=== PATIENT | male | born 1995 | race Caucasian/White ===

== ENCOUNTER 2017-08-16 20:43 | Emergency (ER) | payer OTHER ==
[~2017-08-16] VITALS: Ht 193 cm; Wt 87.1 kg
--- NOTE | 2017-08-16 20:46 | ED.ADGEN ---
Adult General Chief Complaint Chief Complaint ".. I get anxiety attacks.. and CP with them.. this episode been going on 3 to 4 hours constant...".. " Central...but I am sure it is my anxiety.. 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 Pt. 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 Pt. follows at [place]. Recent moved in to [facility]. Pt. report no prior cardiac or coagulopathy disorders. Pt. works out daily. Pt. normally healthy except for anxiety disorder. Review of Systems Review of Systems Constitutional: Denies fever or chills [] Eyes: Denies change in visual acuity, redness, or eye pain [] HENT: Denies nasal congestion or sore throat [] Respiratory: Denies cough or shortness of breath [] Cardiovascular: No additional information not addressed in HPI [] GI: Denies abdominal pain, nausea, vomiting, bloody stools or diarrhea [] : Denies dysuria or hematuria [ Musculoskeletal: Denies back pain or joint pain [] Integument: Denies rash or skin lesions [] Neurologic: Denies headache, focal weakness or sensory changes [] Endocrine: Denies polyuria or polydipsia [] All other systems were reviewed and found to be within normal limits, except as documented in this note. Family History Family History Noncontributory Current Medications Current Medications Current Medications Medications (Trade) Dose Ordered Sig/Silvio Start Time Stop Time Status Last Admin Dose Admin Aspirin (Mahad Aspirin) 325 mg 1X ONCE 08/16/17 22:00 08/16/17 22:01 DC 08/16/17 21:51 325 MG Aspirin (Children'S Aspirin) 81 mg STK-MED ONCE 08/16/17 21:47 08/16/17 21:48 DC Lactated Ringer's 1,000 ml @ 1,000 mls/hr 1X ONCE 08/16/17 22:15 08/16/17 23:14 DC 08/16/17 22:18 1,000 MLS/HR Lorazepam (Ativan) 2 mg 1X ONCE 08/16/17 22:00 08/16/17 22:01 DC 08/16/17 21:49 2 MG See nursing for home meds Allergies Allergies Allergies Coded Allergies Type Severity Reaction Last Updated Verified acetaminophen Allergy Unknown Hives 08/16/17 Yes No known drug allergies Physical Exam Physical Exam Constitutional: Well developed, well nourished, mild distress, non-toxic appearance. [] HENT: Normocephalic, atraumatic, bilateral external ears normal, oropharynx moist, no oral exudates, nose normal. [] Eyes: PERRLA, EOMI, conjunctiva normal, no discharge. [] Neck: Normal range of motion, no tenderness, supple, no stridor. [] Cardiovascular:Heart rate regular rhythm, no murmur [] Lungs & Thorax: Bilateral breath sounds equal apex with scattered wheezes on auscultation [] Abdomen: Bowel sounds normal, soft, no tenderness, no masses, no pulsatile masses. [] Penis as per history of present illness Skin: Warm, dry, no erythema, no rash. multiple tattoos Back: No tenderness, no CVA tenderness. [] Extremities: No tenderness, no cyanosis, no clubbing, ROM intact, no edema. [] Neurologic: Alert and oriented X 3, normal motor function, normal sensory function, no focal deficits noted. [] Psychologic: Affect anxious, judgement normal, mood normal. [] Current Patient Data Vital Signs Vital Signs Date Time Temp Pulse Resp B/P (MAP) Pulse Ox O2 Delivery O2 Flow Rate FiO2 08/16/17 21:55 65 18 123/73 (90) 98 Room Air 08/16/17 20:52 98.3 Lab Results Laboratory Tests Test 08/16/17 21:05 08/16/17 22:25 Creatine Kinase 1068 U/L (39-308) H Troponin I Quantitative < 0.017 ng/mL (0-0.055) D-Dimer (Tammi) 0.28 mg/L (0.00-0.50) EKG EKG I interpretation of EKG shows a sinus bradycardia rhythm at[] 59 bpm. There is some J-point elevation. But no findings of contralateral changes consistent with STEMI. Radiology/Procedures Radiology/Procedures My interpretation of chest x-ray shows no acute cardiopulmonary findings[] Course & Med Decision Making Course & Med Decision Making Pertinent Labs and Imaging studies reviewed. (See chart for details). Patient to take daily aspirin. Patient follow-up [place]. Patient return if any concerns. Consider out pt. stress testing. Final Impression Final Impression 1. Anxiety Disorder 2. Chest Pain Problems: Dragon Disclaimer Dragon Disclaimer This electronic medical record was generated, in whole or in part, using a voice recognition dictation system. LIBORIO DEL VALLE MD August 16, 2017 20:46
[2017-08-16] MEDS ORDERED: ASPIRIN 81 MG TAB.CHEW ONE (21:47)
[2017-08-16] MEDS ORDERED: ASPIRIN 325 MG TABLET PO ONE (22:00)
[2017-08-16] MEDS ORDERED: LORazepam 1 MG TABLET PO ONE (22:00)
[2017-08-16] MEDS ORDERED: IV RINGERS SOLUTION,LACTATED 1,000 ML IV ONE (22:15)
--- NOTE | 2017-08-16 23:18 | EKG ---
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
[2017-08-16 23:25] VITALS: BP 115/62
--- NOTE | 2017-08-17 08:15 | RAD ---
Exam: AP portable chest History: Chest pain, no prior surgery. Comparison: None. Findings: The heart and mediastinal structures are within normal limits for size. Lungs are without infiltrate. No pleural effusion or pneumothorax is identified. Impression: 1. No acute cardiopulmonary process. Electronically signed by: Chet Murray MD (08/17/2017 8:12 AM) [facility]
== END 2017-08-16 23:26 | disposition home or self-care (01) ==
LOC: ER 20:43
DX: F41.9 Anxiety disorder, unspecified (principal); Z88.6 Allergy status to analgesic agent
CPT/HCPCS: 36415; 71045; 82550; 84484; 85379; 93005; 99285; J7120

== ENCOUNTER 2017-10-17 21:54 | Emergency (ER) | payer OTHER ==
[~2017-10-17] VITALS: Ht 193 cm; Wt 88.5 kg
[2017-10-17 21:54] VITALS: BP 122/62
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
[2017-10-17] MEDS ORDERED: LORazepam 1 MG TABLET PO ONE (22:45)
== END 2017-10-17 22:30 | disposition home or self-care (01) ==
LOC: ER 21:54
DX: F41.0 Panic disorder [episodic paroxysmal anxiety] (principal); Z88.6 Allergy status to analgesic agent
CPT/HCPCS: 99284

== ENCOUNTER 2017-12-27 07:16 | Emergency (ER) | payer OTHER ==
[~2017-12-27] VITALS: Ht 193 cm; Wt 90.3 kg
--- NOTE | 2017-12-27 08:01 | PHYS DOC ---
Past History Past Medical History: Anxiety Past Surgical History: Other Alcohol Use: None Drug Use: None Adult General Chief Complaint Chief Complaint: ANXIETY/PANIC ATTACK HPI HPI Patient is a 22 year old male who presents with complaining of anxiety. Patient states he has had anxiety intermittently since June 2017 and take and Celexa. Patient states he used to have when necessary alprazolam. Patient states he started to have anxiety since this morning with palpitation, chest pain, has numbness and lightheadedness that did not get better with taking his home medication. Patient denies suicidal or homicidal ideation, hallucination, using drugs or alcohol. Review of Systems Review of Systems Constitutional: Denies fever or chills [] Eyes: Denies change in visual acuity, redness, or eye pain [] HENT: Denies nasal congestion or sore throat [] Respiratory: Denies cough or shortness of breath [] Cardiovascular: No additional information not addressed in HPI [] GI: Denies abdominal pain, nausea, vomiting, bloody stools or diarrhea [] : Denies dysuria or hematuria [] Musculoskeletal: Denies back pain or joint pain [] Integument: Denies rash or skin lesions [] Neurologic: Denies headache, focal weakness or sensory changes [] Endocrine: Denies polyuria or polydipsia [] All other systems were reviewed and found to be within normal limits, except as documented in this note. Current Medications Current Medications Current Medications Medications (Trade) Dose Ordered Sig/Silvio Start Time Stop Time Status Last Admin Dose Admin Lorazepam (Ativan) 1 mg 1X ONCE 12/27/17 08:10 12/27/17 08:11 12/27/17 07:53 1 MG Allergies Allergies Allergies Coded Allergies Type Severity Reaction Last Updated Verified acetaminophen Allergy Intermediate Hives 12/27/17 Yes Physical Exam Physical Exam Constitutional: Well developed, well nourished, no acute distress, non-toxic appearance. [] HENT: Normocephalic, atraumatic, bilateral external ears normal, oropharynx moist, no oral exudates, nose normal. [] Eyes: PERRLA, EOMI, conjunctiva normal, no discharge. [] Neck: Normal range of motion, no tenderness, supple, no stridor. [] Cardiovascular:Heart rate regular rhythm, no murmur [] Lungs & Thorax: Bilateral breath sounds clear to auscultation [] Abdomen: Bowel sounds normal, soft, no tenderness, no masses, no pulsatile masses. [] Skin: Warm, dry, no erythema, no rash. [] Back: No tenderness, no CVA tenderness. [] Extremities: No tenderness, no cyanosis, no clubbing, ROM intact, no edema. [] Neurologic: Alert and oriented X 3, normal motor function, normal sensory function, no focal deficits noted. [] Psychologic: Affect normal, judgement normal, mood normal. [] Current Patient Data Vital Signs Vital Signs Date Time Temp Pulse Resp B/P (MAP) Pulse Ox O2 Delivery O2 Flow Rate FiO2 12/27/17 07:26 98.1 86 18 96 Room Air EKG EKG [] Radiology/Procedures Radiology/Procedures [] Course & Med Decision Making Course & Med Decision Making Evaluation of patient in ER showed 22-year-old male patient with complaining of anxiety since this morning. Patient had unremarkable physical exam and denied suicidal and homicidal ideation and treated with Ativan and felt better. Patient instructed to follow up with his psychiatric. Dragon Disclaimer Dragon Disclaimer This electronic medical record was generated, in whole or in part, using a voice recognition dictation system. Departure Departure: Impression: Primary Impression: Panic attack Disposition: HOME, SELF-CARE (at 0800) Condition: IMPROVED Referrals: FLETCHER BRIDGES PA-C (PCP) Patient Instructions: Anxiety and Panic Attacks Additional Instructions: Continue home medication Follow-up with your primary care physician in 3-5 days Return to ER if not getting better AC SINGH MD Dec 27, 2017 08:01
[2017-12-27 08:10] VITALS: BP 104/75
[2017-12-27] MEDS ORDERED: LORazepam 2 MG/ML VIAL IM ONE (08:10)
== END 2017-12-27 08:10 | disposition home or self-care (01) ==
LOC: ER 07:16
DX: F41.0 Panic disorder [episodic paroxysmal anxiety] (principal); Z88.6 Allergy status to analgesic agent
CPT/HCPCS: 96372; 99284; J2060

== ENCOUNTER 2018-03-27 18:16 | Emergency (ER) | payer OTHER ==
[~2018-03-27] VITALS: Ht 193 cm; Wt 90.7 kg
--- NOTE | 2018-03-27 18:22 | ED.ADGEN ---
Past History Past Medical History: Anxiety, UTI Past Surgical History: Other Alcohol Use: None Drug Use: None Adult General Chief Complaint Chief Complaint ".. I ve been having chest pain again.. the last couple days.. I ve had this worked up before.. 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 Pain is been somewhat persistent last 2 days. Pain is worse with deep breaths and movement. Patient has noted the pain is been worse with PT consisting of bench presses, lifts and cleaning jerks. Patient has had similar episodes with negative stress test workups. Patient normally follows at [place]. No recent travel or specific ill contacts no recent overseas assignments. Patient does have a past history of anxiety episodes. Review of Systems Review of Systems Constitutional: Denies fever or chills [] Eyes: Denies change in visual acuity, redness, or eye pain [] HENT: Denies nasal congestion or sore throat [] Respiratory: Denies cough or shortness of breath [] Cardiovascular: No additional information not addressed in HPI [] GI: Denies abdominal pain, nausea, vomiting, bloody stools or diarrhea [] : Denies dysuria or hematuria [] Musculoskeletal: Denies back pain or joint pain [] Integument: Denies rash or skin lesions [] Neurologic: Denies headache, focal weakness or sensory changes [] Endocrine: Denies polyuria or polydipsia [] All other systems were reviewed and found to be within normal limits, except as documented in this note. Family History Family History Noncontributory Current Medications Current Medications Current Medications Medications (Trade) Dose Ordered Sig/Silvio Start Time Stop Time Status Last Admin Dose Admin Aspirin (Children'S Aspirin) 324 mg 1X ONCE 03/27/18 19:00 03/27/18 19:01 DC 03/27/18 18:54 324 MG Ketorolac Tromethamine (Toradol 30mg Vial) 30 mg 1X ONCE 03/27/18 19:00 03/27/18 19:01 DC 03/27/18 18:54 30 MG Lactated Ringer's 1,000 ml @ 1,000 mls/hr Q1H 03/27/18 18:24 03/27/18 19:23 DC 03/27/18 18:54 1,000 MLS/HR See nursing for home meds Allergies Allergies Allergies Coded Allergies Type Severity Reaction Last Updated Verified acetaminophen Allergy Intermediate Hives 12/27/17 Yes Physical Exam Physical Exam Constitutional: Well developed, well nourished, no acute distress, non-toxic appearance. [] HENT: Normocephalic, atraumatic, bilateral external ears normal, oropharynx moist, no oral exudates, nose normal. [] Eyes: PERRLA, EOMI, conjunctiva normal, no discharge. [] Neck: Normal range of motion, no tenderness, supple, no stridor. [] Cardiovascular:Heart rate regular rhythm, no murmur [] Lungs & Thorax: Bilateral breath sounds clear to auscultation [] Abdomen: Bowel sounds normal, soft, no tenderness, no masses, no pulsatile masses. [] Skin: Warm, dry, no erythema, no rash. [] Back: No tenderness, no CVA tenderness. [] Extremities: No tenderness, no cyanosis, no clubbing, ROM intact, no edema. [] Neurologic: Alert and oriented X 3, normal motor function, normal sensory function, no focal deficits noted. [] Psychologic: Affect normal, judgement normal, mood normal. [] Current Patient Data Vital Signs Vital Signs Date Time Temp Pulse Resp B/P (MAP) Pulse Ox O2 Delivery O2 Flow Rate FiO2 03/27/18 23:30 55 18 106/60 (75) 97 Room Air 03/27/18 18:25 98.2 Lab Results Laboratory Tests Test 03/27/18 18:30 03/27/18 18:38 03/27/18 21:46 Erythrocyte Sedimentation Rate 1 (0-15) White Blood Count 6.3 x10^3/uL (4.0-11.0) Red Blood Count 4.91 x10^6/uL (4.30-5.70) Hemoglobin 15.7 g/dL (13.0-17.5) Hematocrit 45.7 % (39.0-53.0) Mean Corpuscular Volume 93 fL (79-100) Mean Corpuscular Hemoglobin 32 pg (25-35) Mean Corpuscular Hemoglobin Concent 34 g/dL (31-37) Red Cell Distribution Width 12.8 % (11.5-14.5) Platelet Count 214 x10^3/uL (140-400) Neutrophils (%) (Auto) 59 % (31-73) Lymphocytes (%) (Auto) 31 % (24-48) Monocytes (%) (Auto) 8 % (0-9) Eosinophils (%) (Auto) 1 % (0-3) Basophils (%) (Auto) 1 % (0-3) Neutrophils # (Auto) 3.8 x10^3uL (1.8-7.7) Lymphocytes # (Auto) 2.0 x10^3/uL (1.0-4.8) Monocytes # (Auto) 0.5 x10^3/uL (0.0-1.1) Eosinophils # (Auto) 0.1 x10^3/uL (0.0-0.7) Basophils # (Auto) 0.0 x10^3/uL (0.0-0.2) Prothrombin Time 10.4 SEC (9.4-11.4) Prothrombin Time INR 1.0 (0.9-1.1) PTT 25 SEC (23-33) D-Dimer (Tammi) < 0.19 mg/L (0.00-0.50) Sodium Level 143 mmol/L (136-145) Potassium Level 3.5 mmol/L (3.5-5.1) Chloride Level 105 mmol/L (98-107) Carbon Dioxide Level 28 mmol/L (21-32) Anion Gap 10 (6-14) Blood Urea Nitrogen 12 mg/dL (8-26) Creatinine 1.0 mg/dL (0.7-1.3) Estimated GFR (Cockcroft-Gault) 95.3 Glucose Level 117 mg/dL (70-99) H Calcium Level 9.1 mg/dL (8.5-10.1) Magnesium Level 2.0 mg/dL (1.8-2.4) Total Bilirubin 0.5 mg/dL (0.2-1.0) Direct Bilirubin 0.1 mg/dL (0.0-0.2) Aspartate Amino Transferase (AST) 25 U/L (15-37) Alanine Aminotransferase (ALT) 26 U/L (16-63) Alkaline Phosphatase 61 U/L (46-116) Creatine Kinase 599 U/L (39-308) H Troponin I Quantitative < 0.017 ng/mL (0-0.055) JC-Yls-P-Type Natriuretic Peptide 15 pg/mL (0-124) Total Protein 7.2 g/dL (6.4-8.2) Albumin 4.1 g/dL (3.4-5.0) Lipase 85 U/L (73-393) Urine Collection Type Unknown Urine Color Yellow Urine Clarity Hazy Urine pH 7.0 Urine Specific [place] >=1.030 Urine Protein 30 mg/dl (NEG-TRACE) Urine Glucose (UA) Neg mg/dL (NEG) Urine Ketones (Stick) Trace mg/dL (NEG) Urine Blood Trace (NEG) Urine Nitrite Neg (NEG) Urine Bilirubin Neg (NEG) Urine Urobilinogen Dipstick 0.2 mg/dL (0.2 mg/dL) Urine Leukocyte Esterase Neg (NEG) Urine RBC 11-20 /HPF (0-2) Urine WBC 5-10 /HPF (0-4) Urine Squamous Epithelial Cells Few /LPF Urine Bacteria 0 /HPF (0-FEW) Urine Mucus Slight /LPF Urine Opiates Screen Neg (NEG) Urine Methadone Screen Neg (NEG) Urine Barbiturates Neg (NEG) Urine Phencyclidine Screen Neg (NEG) Urine Amphetamine/Methamphetamine Neg (NEG) Urine Benzodiazepines Screen Neg (NEG) Urine Cocaine Screen Neg (NEG) Urine Cannabinoids Screen Neg (NEG) Urine Ethyl Alcohol Neg (NEG) EKG EKG My interpretation EKG shows a sinus rhythm at 66 bpm with no acute morphology.[] Radiology/Procedures Radiology/Procedures I interpretation of chest x-ray shows no acute cardiopulmonary findings.[] Course & Med Decision Making Course & Med Decision Making Pertinent Labs and Imaging studies reviewed. (See chart for details) Patient to keep follow-up at [facility]. Patient take a daily baby aspirin. Patient return if any concerns. [] Final Impression Final Impression 1. Chest Pain[] 2. History of anxiety disorder 3. Hematuria 4. Mild elevation of CK 599 Dragon Disclaimer Dragon Disclaimer This electronic medical record was generated, in whole or in part, using a voice recognition dictation system. LIBORIO DEL VALLE MD Mar 27, 2018 18:22
[2018-03-27] MEDS ORDERED: IV RINGERS SOLUTION,LACTATED 1,000 ML IV SCH (18:24)
[2018-03-27 18:59] LABS: BASO % 1 % (0-3); EOS # 0.1 x10^3/uL (0.0-0.7); EOS % 1 % (0-3); HEMATOCRIT 45.7 % (39.0-53.0); HEMOGLOBIN 15.7 g/dL (13.0-17.5); LYMPH % 31 % (24-48); MEAN CORPUSCULAR HEMOGLOBIN 32 pg (25-35); MEAN CORPUSCULAR HGB CONC 34 g/dL (31-37); MEAN CORPUSCULAR VOLUME 93 fL (79-100); MONO # 0.5 x10^3/uL (0.0-1.1); MONO % 8 % (0-9); NEUT # 3.8 x10^3uL (1.8-7.7); NEUT % 59 % (31-73); PLATELET COUNT 214 x10^3/uL (140-400); RED BLOOD COUNT 4.91 x10^6/uL (4.30-5.70); RED CELL DISTRIBUTION WIDTH 12.8 % (11.5-14.5); WHITE BLOOD COUNT 6.3 x10^3/uL (4.0-11.0)
[2018-03-27] MEDS ORDERED: ASPIRIN 81 MG TAB.CHEW PO ONE (19:00)
[2018-03-27] MEDS ORDERED: KETOROLAC 30 MG/ML VIAL. IV ONE (19:00)
[2018-03-27 19:20] LABS: ALBUMIN 4.1 g/dL (3.4-5.0); CALCIUM 9.1 mg/dL (8.5-10.1); DIRECT BILIRUBIN 0.1 mg/dL (0.0-0.2); GFR 95.3; POTASSIUM 3.5 mmol/L (3.5-5.1); TOTAL BILIRUBIN 0.5 mg/dL (0.2-1.0); TOTAL PROTEIN 7.2 g/dL (6.4-8.2)
[2018-03-27 22:10] LABS: AMPHETAMINE/METHAMPHETAMINE NEG (NEG); BARBITURATES NEG (NEG); BENZODIAZEPINES NEG (NEG); CANNABINOIDS NEG (NEG); COCAINE NEG (NEG); METHADONE NEG (NEG); OPIATES NEG (NEG); PHENCYCLIDINE NEG (NEG)
[2018-03-27 22:43] LABS: BACTERIA,URINE 0 /HPF (0-FEW); BILIRUBIN,URINE NEG (NEG); CLARITY,URINE HAZY; COLOR,URINE YELLOW; GLUCOSE,URINE NEG (NEG); NITRITE,URINE NEG (NEG); SQUAMOUS EPITHELIAL CELL,UR FEW /LPF; UROBILINOGEN,URINE 0.2 mg/dL (0.2 mg/dL)
[2018-03-27 23:30] VITALS: BP 106/60
--- NOTE | 2018-03-27 23:57 | RAD ---
CHEST PA LATERAL History: Chest pain Comparison: August 16, 2017 Findings: 2 AP views and single lateral view of the chest are submitted. There is no infiltrate, pleural fluid, pneumothorax. Heart size is stable, within normal limits. Impression: 1. No acute radiographic abnormality is identified. Electronically signed by: Pascual Jimenez MD (03/27/2018 11:53 PM) [facility]
--- NOTE | 2018-03-28 23:08 | EKG ---
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
== END 2018-03-27 23:55 | disposition home or self-care (01) ==
LOC: ER 18:16
DX: R07.89 Other chest pain (principal); F41.9 Anxiety disorder, unspecified; R74.8 Abnormal levels of other serum enzymes; Z87.440 Personal history of urinary (tract) infections; Z88.6 Allergy status to analgesic agent
CPT/HCPCS: 36415; 71046; 80048; 80076; 80307; 81001; 82550; 83690; 83735; 83880; 84443; 84484; 85025; 85379; 85610; 85651; 85730; 87086; 93005; 96374; 99284; J1885; J7120

== ENCOUNTER 2018-05-28 19:48 | Emergency (ER) | payer OTHER ==
[~2018-05-28] VITALS: Ht 193 cm; Wt 89.9 kg
[2018-05-28] MEDS ORDERED: ALPRAZolam 0.25 MG TABLET PO ONE (20:15)
--- NOTE | 2018-05-28 20:15 | PHYS DOC ---
Adult General Chief Complaint Chief Complaint anxiety HPI HPI Years old male with history of anxiety and depression presented to the emergency department feeling anxious and crying stating and had an anxiety attack he took 2 Xanax at home 0.25 mg without any help Review of Systems Review of Systems Constitutional: Denies fever or chills [] Eyes: Denies change in visual acuity, redness, or eye pain [] HENT: Denies nasal congestion or sore throat [] Respiratory: Denies cough or shortness of breath [] Cardiovascular: No additional information not addressed in HPI [] GI: Denies abdominal pain, nausea, vomiting, bloody stools or diarrhea [] : Denies dysuria or hematuria [] Musculoskeletal: Denies back pain or joint pain [] Integument: Denies rash or skin lesions [] Neurologic: Denies headache, focal weakness or sensory changes [] Endocrine: Denies polyuria or polydipsia [] All other systems were reviewed and found to be within normal limits, except as documented in this note. Allergies Allergies Allergies Coded Allergies Type Severity Reaction Last Updated Verified acetaminophen Allergy Intermediate Hives 12/27/17 Yes Physical Exam Physical Exam Constitutional: Well developed, well nourished, no acute distress, non-toxic appearance. [] HENT: Normocephalic, atraumatic, bilateral external ears normal, oropharynx moist, no oral exudates, nose normal. [] Eyes: PERRLA, EOMI, conjunctiva normal, no discharge. [] Neck: Normal range of motion, no tenderness, supple, no stridor. [] Cardiovascular:Heart rate regular rhythm, no murmur [] Lungs & Thorax: Bilateral breath sounds clear to auscultation [] Abdomen: Bowel sounds normal, soft, no tenderness, no masses, no pulsatile masses. [] Skin: Warm, dry, no erythema, no rash. [] Back: No tenderness, no CVA tenderness. [] Extremities: No tenderness, no cyanosis, no clubbing, ROM intact, no edema. [] Neurologic: Alert and oriented X 3, normal motor function, normal sensory function, no focal deficits noted. [] EKG EKG [] Radiology/Procedures Radiology/Procedures [] Course & Med Decision Making Course & Med Decision Making Pertinent Labs and Imaging studies reviewed. (See chart for details) [] Final Impression Final Impression [] Problems: (1) Anxiety Dragon Disclaimer Dragon Disclaimer This electronic medical record was generated, in whole or in part, using a voice recognition dictation system. RIGOBERTO CAVANAUGH MD May 28, 2018 20:15
[2018-05-28 21:10] VITALS: BP 113/62
== END 2018-05-28 21:15 | disposition home or self-care (01) ==
LOC: ER 19:48
DX: F41.9 Anxiety disorder, unspecified (principal); F32.9 Major depressive disorder, single episode, unspecified; Z88.6 Allergy status to analgesic agent
CPT/HCPCS: 99284

== ENCOUNTER 2018-07-22 21:39 | Emergency (ER) | payer OTHER ==
[~2018-07-22] VITALS: Ht 193 cm; Wt 91.6 kg
[2018-07-22 21:49] VITALS: BP 143/75
--- NOTE | 2018-07-22 22:01 | PHYS DOC ---
Past History Past Medical History: Anxiety, UTI Past Surgical History: Other Additional Past Surgical Histo: [place] teeth Smoking: Non-smoker Alcohol Use: None Drug Use: None Adult General Chief Complaint Chief Complaint: ANXIETY/PANIC ATTACK HPI HPI 23-year-old male with past nuchal history of anxiety presents with two-hour history of symptoms which patient describes is very consistent with prior panic attacks. Patient denies any suicidal or homicidal ideation. Denies fever or chills. Denies nausea/vomiting/diarrhea. Patient reports he did start having some numbness and tingling in both feet and his hands. Patient reports he has had the same symptoms in the past. Patient reports they do resolve on their own. Patient did try using his home medications without significant improvement. Review of Systems Review of Systems Constitutional: Denies fever or chills [] Eyes: Denies change in visual acuity, redness, or eye pain [] HENT: Denies nasal congestion or sore throat [] Respiratory: Denies cough or shortness of breath [] Cardiovascular: Denies chest pain; reports palpitations GI: Denies abdominal pain, nausea, vomiting, or diarrhea [] : Denies dysuria or hematuria [] Musculoskeletal: Denies back pain or joint pain [] Integument: Denies rash or skin lesions [] Neurologic: Denies headache, focal weakness; reports numbness and tingling to bilateral hands and feet Psychiatric: Reports anxiety; denies suicidal or homicidal ideation Complete systems were reviewed and found to be within normal limits, except as documented in this note. Allergies Allergies Allergies Coded Allergies Type Severity Reaction Last Updated Verified acetaminophen Allergy Intermediate Hives 05/28/18 Yes Physical Exam Physical Exam Constitutional: Well developed, well nourished, no acute distress, anxious HENT: Normocephalic, atraumatic, oropharynx moist Eyes: Conjunctiva normal, no discharge. [] Neck: Normal range of motion, no tenderness, supple Cardiovascular: Heart rate regular rhythm, no murmur [] Lungs & Thorax: Bilateral breath sounds clear to auscultation [] Abdomen: Soft, no tenderness Skin: Warm, dry, no erythema, no rash. [] Extremities: No tenderness, ROM intact, no edema. [] Neurologic: Alert and oriented X 3, normal motor function, normal sensory function, no focal deficits noted. [] Psychologic: Affect anxious, judgement normal, denies suicidal or homicidal ideation Current Patient Data Vital Signs Vital Signs Date Time Temp Pulse Resp B/P (MAP) Pulse Ox O2 Delivery O2 Flow Rate FiO2 07/22/18 21:49 98.1 62 20 97 Room Air EKG EKG [] Radiology/Procedures Radiology/Procedures [] Course & Med Decision Making Course & Med Decision Making Patient presents with history of present illness and physical exam concerning for panic attack. Patient reports symptoms are exactly similar to prior episodes. NIH SS 0. Patient neurologically intact. Symptomatic treatment provided with IM Ativan. Patient reports interval improvement of symptoms. Patient stable for discharge with outpatient follow-up with PCP. Discussed findings and plan with patient, who acknowledges understanding and agreement. Dragon Disclaimer Dragon Disclaimer This electronic medical record was generated, in whole or in part, using a voice recognition dictation system. Departure Departure: Impression: Primary Impression: Anxiety Disposition: HOME, SELF-CARE Condition: STABLE Referrals: FLETCHER BRIDGES PA-C (PCP) Patient Instructions: Anxiety and Panic Attacks, [id number] Additional Instructions: Please follow up closely with your PCP and/or psychiatric professional NIHSS - ED NIH Stroke Scale: NIH Stroke Scale Response (Comments) Value Level of Consciousness: 0 Alert/Responsive 0 LOC Questions: 0 Answers both correctly 0 LOC Commands: 0 Performs both tasks 0 Best Gaze: 0 Normal 0 Visual: 0 No visual loss 0 Facial Palsy: 0 Normal, symmetrical 0 Motor - Left Arm 0 No drift 0 Motor - Right Arm 0 No drift 0 Motor - Left Leg 0 No drift 0 Motor: Right Leg 0 No drift 0 Limb Ataxia: 0 Absent 0 Sensory: 0 No loss 0 Best Language: 0 Normal 0 Dysathria: 0 Normal 0 Extinction and Inattention: 0 Normal 0 Total 0 COPELANDPB DO Jul 22, 2018 22:01
== END 2018-07-22 22:20 | disposition home or self-care (01) ==
LOC: ER 21:39
DX: F41.9 Anxiety disorder, unspecified (principal); Z87.440 Personal history of urinary (tract) infections; Z88.6 Allergy status to analgesic agent
CPT/HCPCS: 96372; 99284; J2060

== ENCOUNTER 2018-08-17 22:03 | Emergency (ER) | payer OTHER ==
[~2018-08-17] VITALS: Ht 193 cm; Wt 91.6 kg
--- NOTE | 2018-08-17 22:08 | ED.ADGEN ---
Past History Past Medical History: Anxiety, Depression, UTI Past Surgical History: Other Additional Past Surgical Histo: [place] teeth Smoking: Non-smoker Alcohol Use: None Drug Use: None Adult General Chief Complaint Chief Complaint ".. I am having one of my panic attack.. and I was out my meds.. 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 Patient requesting a dose of Ativan until he can takemeds on Saturday morning. Patient denies any drug use. No recent travel. Has been following with his counselor. Has been compliant with his medications. Patient has been seen previously for his panic attacks and anxiety. Patient denies any suicidal ideation. Patient states his depression is well-controlled. Review of Systems Review of Systems Constitutional: Denies fever or chills [] Eyes: Denies change in visual acuity, redness, or eye pain [] HENT: Denies nasal congestion or sore throat [] Respiratory: Denies cough or shortness of breath [] Cardiovascular: No additional information not addressed in HPI [] GI: Denies abdominal pain, nausea, vomiting, bloody stools or diarrhea [] : Denies dysuria or hematuria [] Musculoskeletal: Denies back pain or joint pain [] Integument: Denies rash or skin lesions [] Neurologic: Denies headache, focal weakness or sensory changes [] Endocrine: Denies polyuria or polydipsia [] All other systems were reviewed and found to be within normal limits, except as documented in this note. Family History Family History Noncontributory Current Medications Current Medications Current Medications Medications (Trade) Dose Ordered Sig/Silvio Start Time Stop Time Status Last Admin Dose Admin Lorazepam (Ativan) 2 mg 1X ONCE 08/17/18 22:30 08/17/18 22:50 DC 08/17/18 22:50 2 MG Allergies Allergies Allergies Coded Allergies Type Severity Reaction Last Updated Verified acetaminophen Allergy Intermediate Hives 05/28/18 Yes Physical Exam Physical Exam Constitutional: Well developed, well nourished, no acute distress, non-toxic appearance. [] HENT: Normocephalic, atraumatic, bilateral external ears normal, oropharynx moist, no oral exudates, nose normal. [] Eyes: PERRLA, EOMI, conjunctiva normal, no discharge. [] Neck: Normal range of motion, no tenderness, supple, no stridor. [] Cardiovascular:Heart rate regular rhythm, no murmur [] Lungs & Thorax: Bilateral breath sounds clear to auscultation [] Abdomen: Bowel sounds normal, soft, no tenderness, no masses, no pulsatile masses. [] Skin: Warm, dry, no erythema, no rash. [] Back: No tenderness, no CVA tenderness. [] Extremities: No tenderness, no cyanosis, no clubbing, ROM intact, no edema. [] Neurologic: Alert and oriented X 3, normal motor function, normal sensory functi on, no focal deficits noted. [] Psychologic: Affect anxious, judgement normal, mood normal. [] Current Patient Data Vital Signs Vital Signs Date Time Temp Pulse Resp B/P (MAP) Pulse Ox O2 Delivery O2 Flow Rate FiO2 08/17/18 22:45 71 20 130/80 (97) 97 Room Air 08/17/18 22:41 98.4 EKG EKG My interpretation EKG shows sinus rhythm at 62 bpm. There is nonspecific anterior lateral changes. But no findings acute STEMI with contralateral changes.[] Radiology/Procedures Radiology/Procedures [] Course & Med Decision Making Course & Med Decision Making Pertinent Labs and Imaging studies reviewed. (See chart for details). Recent continue his anxiety meds as directed. Patient to return if any concerns. Keep follow-up at [facility]. [] Final Impression Final Impression 1. Anxiety[] 2. Panic Attack Dragon Disclaimer Dragon Disclaimer This electronic medical record was generated, in whole or in part, using a voice recognition dictation system. Discharge Summary Brief Hospital Course Allergies Allergies Coded Allergies Type Severity Reaction Last Updated Verified acetaminophen Allergy Intermediate Hives 05/28/18 Yes Vital Signs Vital Signs Date Time Temp Pulse Resp B/P (MAP) Pulse Ox O2 Delivery O2 Flow Rate FiO2 08/17/18 22:45 71 20 130/80 (97) 97 Room Air 08/17/18 22:41 98.4 Brief Hospital Course Mr. Valerio is a 23 old male who presented with exacerbation of his anxiety disorder. Meds not available on Saturday at [facility]. Discharge Information Condition at Discharge: Stable Disposition/Orders: D/C to Home Dischare Medications Current Medications Lorazepam (Ativan) 2 mg 1X ONCE PO Last administered on 08/17/18at 22:50; Admin Dose 2 MG; Start 08/17/18 at 22:30; Stop 08/17/18 at 22:50; Status DC Dragon Disclaimer This chart was dictated in whole or in part using Voice Recognition software in a busy, high-work load, and often noisy Emergency Department environment. It may contain unintended and wholly unrecognized errors or omissions. LIBORIO DEL VALLE MD August 17, 2018 22:08
[2018-08-17 22:45] VITALS: BP 130/80
[2018-08-17] MEDS: LORazepam 1 MG TABLET PO ONE (22:50)
--- NOTE | 2018-08-18 06:46 | EKG ---
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 Electronically Signed On 08-20-2018 16:14:28 CDT by Justo Chino
== END 2018-08-17 22:51 | disposition home or self-care (01) ==
LOC: ER 22:03
DX: F41.0 Panic disorder [episodic paroxysmal anxiety] (principal); F32.9 Major depressive disorder, single episode, unspecified; Z87.440 Personal history of urinary (tract) infections; Z88.6 Allergy status to analgesic agent
CPT/HCPCS: 93005; 99283; 99284

== ENCOUNTER 2018-11-08 23:00 | Inpatient (IN) | payer OTHER ==
[~2018-11-08] VITALS: Ht 193 cm; Wt 100.2 kg
--- NOTE | 2018-11-08 23:03 | ED.ADGEN ---
Past History Past Medical History: Anxiety, Hypothyroid Past Surgical History: Other Additional Past Surgical Histo: [place] teeth Smoking: Non-smoker Alcohol Use: Rarely Drug Use: None Adult General Chief Complaint Chief Complaint ".. I am having more chest pain... and anxiety...".." I woke up with this central chest pain.. 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 Pt. had previous episodes and anxiety attacks. No hx of trauma. No recent travel or specific ill contacts. Pt. Localizes his paint to center Lt chest. Pt. states previous episodes of chest pain related to his anxiety and stressful activity.. Pt. has not had a cardiac stress test or echo. Pt. states he recently hx of Chichi thyroid dysfunction. Pt. states sometimes if he take his anxiety meds.the chest pain resolves.. Pt. does PT which consist of 1 up 6 miles running. Pt. does follow with a counselor for his anxiety disorder. Review of Systems Review of Systems Constitutional: Denies fever or chills [] Eyes: Denies change in visual acuity, redness, or eye pain [] HENT: Denies nasal congestion or sore throat [] Respiratory: complaints of shortness of breath [] Cardiovascular: No additional information not addressed in HPI [] GI: Denies abdominal pain, nausea, vomiting, bloody stools or diarrhea [] : Denies dysuria or hematuria [] Musculoskeletal: Denies back pain or joint pain [] Integument: Denies rash or skin lesions [] Neurologic: Denies headache, focal weakness or sensory changes [] Endocrine: Denies polyuria or polydipsia [] All other systems were reviewed and found to be within normal limits, except as documented in this note. Family History Family History Non-contributory Current Medications Current Medications Current Medications Medications (Trade) Dose Ordered Sig/Silvio Start Time Stop Time Status Last Admin Dose Admin Aspirin (Children'S Aspirin) 324 mg 1X ONCE 11/08/18 23:45 11/08/18 23:46 DC 11/09/18 00:23 324 MG Enoxaparin Sodium (Lovenox 100mg Syringe) 100 mg 1X ONCE 11/08/18 23:45 7/27/19 23:46 DC 11/08/18 00:22 100 MG Lactated Ringer's 1,000 ml @ 1,000 mls/hr Q1H 11/08/18 23:45 11/09/18 00:45 DC 11/09/18 00:21 1,000 MLS/HR Lorazepam (Ativan Inj) 1 mg 1X ONCE 11/08/18 23:45 11/08/18 23:46 DC 11/09/18 00:21 1 MG Allergies Allergies Allergies Coded Allergies Type Severity Reaction Last Updated Verified acetaminophen Allergy Intermediate Hives 11/08/18 Yes Physical Exam Physical Exam Constitutional: Well developed, well nourished,moderate acute distress, non- toxic appearance. [] HENT: Normocephalic, atraumatic, bilateral external ears normal, oropharynx moist, no oral exudates, nose normal. [] Eyes: PERRLA, EOMI, conjunctiva normal, no discharge. [] Neck: Normal range of motion, no tenderness, supple, no stridor. [] Cardiovascular:Heart rate regular rhythm, no murmur [] Lungs & Thorax: Bilateral breath sounds clear to auscultation [] Abdomen: Bowel sounds normal, soft, no tenderness, no masses, no pulsatile masses. [] Skin: Warm, dry, no erythema, no rash. [] Back: No tenderness, no CVA tenderness. [] Extremities: No tenderness, no cyanosis, no clubbing, ROM intact, no edema. [] Neurologic: Alert and oriented X 3, normal motor function, normal sensory function, no focal deficits noted. [] Psychologic: Affect anxious, judgement normal, mood normal. [] Current Patient Data Vital Signs Vital Signs Date Time Temp Pulse Resp B/P (MAP) Pulse Ox O2 Delivery O2 Flow Rate FiO2 11/08/18 23:45 66 22 121/79 (93) 92 Room Air 11/08/18 23:05 98.0 Lab Results Laboratory Tests Test 11/08/18 23:50 White Blood Count 5.9 x10^3/uL (4.0-11.0) Red Blood Count 4.85 x10^6/uL (4.30-5.70) Hemoglobin 15.8 g/dL (13.0-17.5) Hematocrit 46.2 % (39.0-53.0) Mean Corpuscular Volume 95 fL (79-100) Mean Corpuscular Hemoglobin 33 pg (25-35) Mean Corpuscular Hemoglobin Concent 34 g/dL (31-37) Red Cell Distribution Width 12.7 % (11.5-14.5) Platelet Count 233 x10^3/uL (140-400) Neutrophils (%) (Auto) 52 % (31-73) Lymphocytes (%) (Auto) 36 % (24-48) Monocytes (%) (Auto) 10 % (0-9) H Eosinophils (%) (Auto) 1 % (0-3) Basophils (%) (Auto) 1 % (0-3) Neutrophils # (Auto) 3.1 x10^3uL (1.8-7.7) Lymphocytes # (Auto) 2.1 x10^3/uL (1.0-4.8) Monocytes # (Auto) 0.6 x10^3/uL (0.0-1.1) Eosinophils # (Auto) 0.1 x10^3/uL (0.0-0.7) Basophils # (Auto) 0.0 x10^3/uL (0.0-0.2) Prothrombin Time 10.2 SEC (9.4-11.4) Prothrombin Time INR 1.0 (0.9-1.1) PTT 25 SEC (23-33) D-Dimer (Tammi) 0.33 mg/L (0.00-0.50) Sodium Level 143 mmol/L (136-145) Potassium Level 3.9 mmol/L (3.5-5.1) Chloride Level 105 mmol/L (98-107) Carbon Dioxide Level 28 mmol/L (21-32) Anion Gap 10 (6-14) Blood Urea Nitrogen 14 mg/dL (8-26) Creatinine 1.1 mg/dL (0.7-1.3) Estimated GFR (Cockcroft-Gault) 84.5 Glucose Level 111 mg/dL (70-99) H Calcium Level 9.4 mg/dL (8.5-10.1) Magnesium Level 2.0 mg/dL (1.8-2.4) Total Bilirubin 0.4 mg/dL (0.2-1.0) Direct Bilirubin 0.1 mg/dL (0.0-0.2) Aspartate Amino Transferase (AST) 18 U/L (15-37) Alanine Aminotransferase (ALT) 27 U/L (16-63) Alkaline Phosphatase 86 U/L (46-116) Creatine Kinase 126 U/L (39-308) Troponin I Quantitative < 0.017 ng/mL (0-0.055) HJ-Wut-K-Type Natriuretic Peptide 13 pg/mL (0-124) Total Protein 7.0 g/dL (6.4-8.2) Albumin 4.3 g/dL (3.4-5.0) Lipase 96 U/L (73-393) EKG EKG I interpretation EKG shows sinus rhythm at 67 bpm. There is some right axis change. Anterior lateral changes. But no findings of acute STEMI of contralateral changes. There is some J-point elevation i in leads V2 and 3. There is abnormal ST changes in leads 1 and 2.[] Radiology/Procedures Radiology/Procedures I interpretation chest x-ray shows no acute cardiopulmonary findings. My interpretation of CT chest shows no significant findings for pulmonary embolisms or infiltrate.[] See formal reports when available. Course & Med Decision Making Course & Med Decision Making Pertinent Labs and Imaging studies reviewed. (See chart for details) Admit to Dr. Dietrich and Cardiology consult. Pt. Heart score 4-5. Advised unable to D-dimer because of Lipids too high. Will be a send out lab. [] Final Impression Final Impression 1. Chest Pain 2. Dyspnea 3. Anxiety Disorder[] 4. Hx. of Chichi's thyroid disorder 5. Elevated Lipids Dragon Disclaimer Dragon Disclaimer This electronic medical record was generated, in whole or in part, using a voice recognition dictation system. Discharge Summary Visit Information Final Diagnosis Problems Medical Problems: (1) Chest pain Status: Acute Brief Hospital Course Allergies Allergies Coded Allergies Type Severity Reaction Last Updated Verified acetaminophen Allergy Intermediate Hives 11/08/18 Yes Vital Signs Vital Signs Date Time Temp Pulse Resp B/P (MAP) Pulse Ox O2 Delivery O2 Flow Rate FiO2 11/08/18 23:45 66 22 121/79 (93) 92 Room Air 11/08/18 23:05 98.0 Lab Results Laboratory Tests Test 11/08/18 23:50 White Blood Count 5.9 x10^3/uL (4.0-11.0) Red Blood Count 4.85 x10^6/uL (4.30-5.70) Hemoglobin 15.8 g/dL (13.0-17.5) Hematocrit 46.2 % (39.0-53.0) Mean Corpuscular Volume 95 fL (79-100) Mean Corpuscular Hemoglobin 33 pg (25-35) Mean Corpuscular Hemoglobin Concent 34 g/dL (31-37) Red Cell Distribution Width 12.7 % (11.5-14.5) Platelet Count 233 x10^3/uL (140-400) Neutrophils (%) (Auto) 52 % (31-73) Lymphocytes (%) (Auto) 36 % (24-48) Monocytes (%) (Auto) 10 % (0-9) Eosinophils (%) (Auto) 1 % (0-3) Basophils (%) (Auto) 1 % (0-3) Neutrophils # (Auto) 3.1 x10^3uL (1.8-7.7) Lymphocytes # (Auto) 2.1 x10^3/uL (1.0-4.8) Monocytes # (Auto) 0.6 x10^3/uL (0.0-1.1) Eosinophils # (Auto) 0.1 x10^3/uL (0.0-0.7) Basophils # (Auto) 0.0 x10^3/uL (0.0-0.2) Prothrombin Time 10.2 SEC (9.4-11.4) Prothromb Time International Ratio 1.0 (0.9-1.1) Activated Partial Thromboplast Time 25 SEC (23-33) D-Dimer (Tammi) 0.33 mg/L (0.00-0.50) Sodium Level 143 mmol/L (136-145) Potassium Level 3.9 mmol/L (3.5-5.1) Chloride Level 105 mmol/L (98-107) Carbon Dioxide Level 28 mmol/L (21-32) Anion Gap 10 (6-14) Blood Urea Nitrogen 14 mg/dL (8-26) Creatinine 1.1 mg/dL (0.7-1.3) Estimated GFR (Cockcroft-Gault) 84.5 Glucose Level 111 mg/dL (70-99) Calcium Level 9.4 mg/dL (8.5-10.1) Magnesium Level 2.0 mg/dL (1.8-2.4) Total Bilirubin 0.4 mg/dL (0.2-1.0) Direct Bilirubin 0.1 mg/dL (0.0-0.2) Aspartate Amino Transf (AST/SGOT) 18 U/L (15-37) Alanine Aminotransferase (ALT/SGPT) 27 U/L (16-63) Alkaline Phosphatase 86 U/L (46-116) Creatine Kinase 126 U/L (39-308) Troponin I Quantitative < 0.017 ng/mL (0-0.055) CS-Whk-U-Type Natriuretic Peptide 13 pg/mL (0-124) Total Protein 7.0 g/dL (6.4-8.2) Albumin 4.3 g/dL (3.4-5.0) Lipase 96 U/L (73-393) Brief Hospital Course 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 Admitted to Dr. Dietrich with Cardiology consult. Discharge Information Condition at Discharge: Improved, Stable Dischare Medications Current Medications Aspirin (Children'S Aspirin) 324 mg 1X ONCE PO Last administered on 11/09/18at 00:23; Admin Dose 324 MG; Start 11/08/18 at 23:45; Stop 11/08/18 at 23:46; Status DC Lorazepam (Ativan Inj) 1 mg 1X ONCE IV Last administered on 11/09/18at 00:21; Admin Dose 1 MG; Start 11/08/18 at 23:45; Stop 11/08/18 at 23:46; Status DC Enoxaparin Sodium (Lovenox 100mg Syringe) 100 mg 1X ONCE SQ Last administered on 11/08/18at 00:22; Admin Dose 100 MG; Start 11/08/18 at 23:45; Stop 11/08/18 at 23:46; Status DC Lactated Ringer's 1,000 ml @ 1,000 mls/hr Q1H IV Last administered on 11/09/18at 00:21; Admin Dose 1,000 MLS/HR; Start 11/08/18 at 23:45; Stop 11/09/18 at 00:45; Status DC Discharge Summary Visit Information Final Diagnosis Problems Medical Problems: (1) Chest pain Status: Acute Brief Hospital Course Allergies Allergies Coded Allergies Type Severity Reaction Last Updated Verified acetaminophen Allergy Intermediate Hives 11/08/18 Yes Vital Signs Vital Signs Date Time Temp Pulse Resp B/P (MAP) Pulse Ox O2 Delivery O2 Flow Rate FiO2 11/08/18 23:45 66 22 121/79 (93) 92 Room Air 11/08/18 23:05 98.0 Lab Results Laboratory Tests Test 11/08/18 23:50 White Blood Count 5.9 x10^3/uL (4.0-11.0) Red Blood Count 4.85 x10^6/uL (4.30-5.70) Hemoglobin 15.8 g/dL (13.0-17.5) Hematocrit 46.2 % (39.0-53.0) Mean Corpuscular Volume 95 fL (79-100) Mean Corpuscular Hemoglobin 33 pg (25-35) Mean Corpuscular Hemoglobin Concent 34 g/dL (31-37) Red Cell Distribution Width 12.7 % (11.5-14.5) Platelet Count 233 x10^3/uL (140-400) Neutrophils (%) (Auto) 52 % (31-73) Lymphocytes (%) (Auto) 36 % (24-48) Monocytes (%) (Auto) 10 % (0-9) Eosinophils (%) (Auto) 1 % (0-3) Basophils (%) (Auto) 1 % (0-3) Neutrophils # (Auto) 3.1 x10^3uL (1.8-7.7) Lymphocytes # (Auto) 2.1 x10^3/uL (1.0-4.8) Monocytes # (Auto) 0.6 x10^3/uL (0.0-1.1) Eosinophils # (Auto) 0.1 x10^3/uL (0.0-0.7) Basophils # (Auto) 0.0 x10^3/uL (0.0-0.2) Prothrombin Time 10.2 SEC (9.4-11.4) Prothromb Time International Ratio 1.0 (0.9-1.1) Activated Partial Thromboplast Time 25 SEC (23-33) D-Dimer (Tammi) 0.33 mg/L (0.00-0.50) Sodium Level 143 mmol/L (136-145) Potassium Level 3.9 mmol/L (3.5-5.1) Chloride Level 105 mmol/L (98-107) Carbon Dioxide Level 28 mmol/L (21-32) Anion Gap 10 (6-14) Blood Urea Nitrogen 14 mg/dL (8-26) Creatinine 1.1 mg/dL (0.7-1.3) Estimated GFR (Cockcroft-Gault) 84.5 Glucose Level 111 mg/dL (70-99) Calcium Level 9.4 mg/dL (8.5-10.1) Magnesium Level 2.0 mg/dL (1.8-2.4) Total Bilirubin 0.4 mg/dL (0.2-1.0) Direct Bilirubin 0.1 mg/dL (0.0-0.2) Aspartate Amino Transf (AST/SGOT) 18 U/L (15-37) Alanine Aminotransferase (ALT/SGPT) 27 U/L (16-63) Alkaline Phosphatase 86 U/L (46-116) Creatine Kinase 126 U/L (39-308) Troponin I Quantitative < 0.017 ng/mL (0-0.055) HP-Ogo-F-Type Natriuretic Peptide 13 pg/mL (0-124) Total Protein 7.0 g/dL (6.4-8.2) Albumin 4.3 g/dL (3.4-5.0) Lipase 96 U/L (73-393) 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 Admitted to Dr. Dietrich with Cardiology consult. Discharge Information Condition at Discharge: Improved, Stable Dischare Medications Current Medications Aspirin (Children'S Aspirin) 324 mg 1X ONCE PO Last administered on 11/09/18at 00:23; Admin Dose 324 MG; Start 11/08/18 at 23:45; Stop 11/08/18 at 23:46; Status DC Lorazepam (Ativan Inj) 1 mg 1X ONCE IV Last administered on 11/09/18at 00:21; Admin Dose 1 MG; Start 11/08/18 at 23:45; Stop 11/08/18 at 23:46; Status DC Enoxaparin Sodium (Lovenox 100mg Syringe) 100 mg 1X ONCE SQ Last administered on 11/08/18at 00:22; Admin Dose 100 MG; Start 11/08/18 at 23:45; Stop 11/08/18 at 23:46; Status DC Lactated Ringer's 1,000 ml @ 1,000 mls/hr Q1H IV Last administered on 11/09/18at 00:21; Admin Dose 1,000 MLS/HR; Start 11/08/18 at 23:45; Stop 11/09/18 at 00:45; Status DC Dragon Disclaimer This chart was dictated in whole or in part using Voice Recognition software in a busy, high-work load, and often noisy Emergency Department environment. It may contain unintended and wholly unrecognized errors or omissions. Dragon Disclaimer This chart was dictated in whole or in part using Voice Recognition software in a busy, high-work load, and often noisy Emergency Department environment. It may contain unintended and wholly unrecognized errors or omissions. LIBORIO DEL VALLE MD Nov 08, 2018 23:03
[2018-11-08] MEDS ORDERED: IV RINGERS SOLUTION,LACTATED 1,000 ML IV SCH (23:45)
[2018-11-08] MEDS ORDERED: ENOXAPARIN ** NOTE DOSE ** SYRINGE SQ ONE (23:45)
[2018-11-08] MEDS ORDERED: ASPIRIN 81 MG TAB.CHEW PO ONE (23:45)
[2018-11-09 00:14] LABS: BASO % 1 % (0-3); EOS # 0.1 x10^3/uL (0.0-0.7); EOS % 1 % (0-3); HEMATOCRIT 46.2 % (39.0-53.0); HEMOGLOBIN 15.8 g/dL (13.0-17.5); LYMPH # 2.1 x10^3/uL (1.0-4.8); LYMPH % 36 % (24-48); MEAN CORPUSCULAR HEMOGLOBIN 33 pg (25-35); MEAN CORPUSCULAR HGB CONC 34 g/dL (31-37); MEAN CORPUSCULAR VOLUME 95 fL (79-100); MONO # 0.6 x10^3/uL (0.0-1.1); MONO % 10 % (0-9); NEUT # 3.1 x10^3uL (1.8-7.7); NEUT % 52 % (31-73); PLATELET COUNT 233 x10^3/uL (140-400); RED BLOOD COUNT 4.85 x10^6/uL (4.30-5.70); RED CELL DISTRIBUTION WIDTH 12.7 % (11.5-14.5); WHITE BLOOD COUNT 5.9 x10^3/uL (4.0-11.0)
[2018-11-09 00:30] LABS: ALBUMIN 4.3 g/dL (3.4-5.0); CALCIUM 9.4 mg/dL (8.5-10.1); CREATININE 1.1 mg/dL (0.7-1.3); DIRECT BILIRUBIN 0.1 mg/dL (0.0-0.2); GFR 84.5; POTASSIUM 3.9 mmol/L (3.5-5.1); TOTAL BILIRUBIN 0.4 mg/dL (0.2-1.0)
[2018-11-09] MEDS ORDERED: ONDANSETRON PF 4 MG/2 ML VIAL. IV PRN (01:00)
[2018-11-09] MEDS ORDERED: ACETAMINOPHEN 325 MG TABLET PO PRN (01:00)
[2018-11-09] MEDS ORDERED: CONTRAST GIVEN MC PRN (01:30)
[2018-11-09] MEDS ORDERED: IOHEXOL 350 MG/ML 100 ML VIAL. IV ONE (01:30)
--- NOTE | 2018-11-09 02:37 | RAD ---
EXAM: CT chest with contrast - pulmonary embolus protocol CLINICAL HISTORY: Chest pain. COMPARISON: None. TECHNIQUE: CT of the chest following the administration of intravenous contrast during the pulmonary arterial phase. Axial, coronal and sagittal reformatted images were generated including MIP images. ---PQRS compliance statement - One or more of the following individualized dose reduction techniques were utilized for this study: 1. Automated exposure control 2. Adjustment of the mA and/or kV according to patient size 3. Use of iterative reconstruction technique--- FINDINGS: CHEST: Diagnostic quality: Suboptimal. Pulmonary emboli: No pulmonary emboli to the level of the subsegmental branches. More peripheral vessels are not well assessed. Right heart strain: None Pulmonary arteries: Normal in caliber. Heart is not enlarged. No mediastinal or hilar lymphadenopathy. Anterior mediastinal soft tissue density likely residual thymus. No pleural effusion or pneumothorax. Dependent opacities in the lower lobes likely atelectasis. No suspicious lung nodule or mass is seen. Visualized Upper abdomen: Adrenal glands are normal. Moderate colonic stool content is seen. Bones: Osseous structures are grossly unremarkable. IMPRESSION: 1. Suboptimal contrast bolus timing. Within these constraints no evidence for acute pulmonary emboli to the level of the proximal subsegmental branches. Electronically signed by: Herb Joiner MD (11/09/2018 2:35 AM) [place] [id number]
--- NOTE | 2018-11-09 03:15 | NUR ---
The patient, MARIANNE MARTINEZ, 23 y/o, M admitted by LIZETH MCNAMARA MD, was given written information regarding hospital policies, unit procedures and contact persons. Valuables were left with pt, including wallet, pants, shoes, shirt and contact lenses. Pt pleasant at this time. WCTM.
[2018-11-09 03:33] VITALS: BP 117/74
[2018-11-09] MEDS ORDERED: ESCITALOPRAM OX20 MG PO (04:15)
[2018-11-09] MEDS ORDERED: LEVO137T3 PO (04:16)
[2018-11-09] MEDS ORDERED: LORA0.5T PO (04:17)
--- NOTE | 2018-11-09 04:52 | NUR ---
consult called to DR. CABRAL'S office.
[2018-11-09 07:44] VITALS: BP 117/73
[2018-11-09] MEDS ORDERED: ASPIRIN 81 MG TAB.CHEW PO SCH (08:00)
--- NOTE | 2018-11-09 08:17 | RAD ---
PA and lateral chest. HISTORY: Chest pain PA and lateral views were taken of the chest. Lungs are clear. Heart is normal in size without heart failure. There is no pleural effusion. IMPRESSION: 1. No acute chest disease. Electronically signed by: Keyon Hoang MD (11/09/2018 8:15 AM) [facility]
[2018-11-09] MEDS ORDERED: ENOXAPARIN ** NOTE DOSE ** SYRINGE SQ SCH (09:00)
[2018-11-09 09:49] LABS: AMPHETAMINE/METHAMPHETAMINE NEG (NEG); BARBITURATES NEG (NEG); BENZODIAZEPINES NEG (NEG); CANNABINOIDS NEG (NEG); COCAINE NEG (NEG); METHADONE NEG (NEG); OPIATES NEG (NEG); PHENCYCLIDINE NEG (NEG)
[2018-11-09 09:54] LABS: BILIRUBIN,URINE NEG (NEG); CLARITY,URINE CLEAR; COLOR,URINE YELLOW; GLUCOSE,URINE NEG (NEG); UROBILINOGEN,URINE 1 mg/dL (0.2 mg/dL)
[2018-11-09 09:55] LABS: AMORPHOUS SEDIMENT,UR PRESENT /HPF; BACTERIA,URINE 0 /HPF (0-FEW); NITRITE,URINE NEG (NEG); RBC,URINE 0 /HPF (0-2); WBC,URINE RARE /HPF (0-4); YEAST,URINE PRESENT /HPF
[2018-11-09 10:23] VITALS: BP 118/72
--- NOTE | 2018-11-09 14:14 | NUR ---
PATIENT DC HOME WITH SELF CARE. PATIENTS IV REMOVED, TELE MONITOR REMOVED. PATIENT HAS ALL BELONGINGS WITH HIM AT TIME OF D/C. PATIENT AMBULATED OFF UNIT.
--- NOTE | 2018-11-09 16:19 | SSS ---
ADMIT DATE: 11/09/2018 HISTORY OF PRESENT ILLNESS: The patient is a 23-year-old male patient who came to the Emergency Room complaining of chest pain and anxiety. He stated that he woke up with the central chest pain and had it for more than an hour by the time he arrived to the Emergency Room. 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 He does follow with a counselor for his anxiety disorder. He has had previous episode of chest pain related to his anxiety and stressful activities, has no history of trauma, recent travel or specific ill contact. His pain is mostly central in chest. Denied any nausea or vomiting, denied any diaphoresis. He was investigated in the Emergency Room and his EKG showed he was in sinus rhythm at 67 beats per minute, some right axis changes, but no acute ST segment elevation myocardial infarction. His first set of cardiac enzymes showed troponin to be less than 0.017. He was admitted, has another set of cardiac enzymes that was also less than 0.017. He has had also fasting lipid profile and TSH. We did speak with the copier field service technician who recommended that the patient can be discharged safely to follow with his office on 11/12/2018. PAST MEDICAL HISTORY: Significant for anxiety, and hypothyroidism. PAST SURGICAL HISTORY: Significant for wisdom teeth extraction. FAMILY HISTORY: Unremarkable. 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 Drinks alcohol rarely. Does not use any drugs. He is single, has no children. PHYSICAL EXAMINATION: GENERAL: On examining him, he looked well and was clearly in no apparent respiratory distress. No pallor, jaundice, cyanosis, or thyromegaly. No jugular venous distension. No limb edema. VITAL SIGNS: Her heart rate was 70, blood pressure was 118/72, temperature was 98, respiratory rate was 18 and oxygen saturation was 98%. HEAD, EYES, EARS, NOSE AND THROAT: Showed normocephalic, atraumatic. NECK: Supple. HEART: Showed normal first and second heart sounds. No gallop, rub or murmur. CHEST: Clear to auscultation. No crepitation or rhonchi. ABDOMEN: Distended, soft, nontender. No guarding or rigidity. No organomegaly. All hernial orifice intact. Bowel sounds normal. NEUROLOGIC: He was awake, alert, responding appropriately. All cranial nerves intact. EXTREMITIES: He moves extremities without difficulty, ambulates without assistance or assistive devices. LABORATORY DATA: Showed serum sodium of 143, potassium 3.9, chloride 105, bicarbonate 28, anion gap of 10, BUN 14, creatinine 1.1, estimated GFR was 84 mL per minute, his glucose 111, calcium was 9.4, magnesium 2. Total bilirubin, AST, ALT, alkaline phosphatase were normal. He has 2 sets of cardiac enzymes showed troponin to be less than 0.017. His beta natriuretic peptide was 13. Total protein 7, albumin was 4.3. Lipase was 96. His serum triglycerides were 157, total cholesterol 129, LDL cholesterol was 70, VLDL was 31, HDL cholesterol was 28 and the ratio was 4. His TSH was high at 23.395. His white cell count was 5900, hemoglobin 16, hematocrit 46, MCV 95, and platelet count 233,000 with normal manual differential. His prothrombin time was 10.2, INR of 1, aPTT was 25 and D-dimer was 0.33. Urinalysis was essentially unremarkable. Toxic screen was negative. His chest x-ray showed no acute chest disease. CT angio of the chest showed that the heart is not enlarged. There are no pulmonary emboli. No right heart strain. The pulmonary arteries are normal in caliber. There are no mediastinal or hilar lymphadenopathy, anterior mediastinal soft tissue density likely due to residual thymus. No pleural effusion or pneumothorax dependent opacities in the lower lungs, most likely atelectasis, no suspicious lung nodules or masses seen. Visualized upper abdomen are normal. Osseous structures are grossly unremarkable. ASSESSMENT AND PLAN: The patient was discharged home to continue on his escitalopram oxalate 20 mg once a day, levothyroxine 137 mcg once a day, lorazepam 0.5 mg daily as needed for anxiety. He would be seen at Dr. Queen his copier field service technician office on next 11/12/2018. I also advised him to follow with his primary care physician as he probably needs his levothyroxine dose to be adjusted higher as his hypothyroidism is not adequately treated. LIZETH MCNAMARA MD DR: SUSAN/alexander JOB#: [id number] / [id number]
--- NOTE | 2018-11-10 06:25 | EKG ---
[address] [address] Test Date: 2018-11-08 Test Time: 23:27:16 Pat Name: MARIANNE MARTINEZ Department: Room: Gender: M [employer] Attendant: : 1995 Requested By: LIBORIO DEL VALLE Order Number: [id number] Reading MD: Measurements Intervals [place] Rate: 67 P: 156 VA: 154 QRS: 152 QRSD: 94 T: 171 QT: 386 QTc: 411 Interpretive Statements SUPRAVENTRICULAR RHYTHM ABNORMAL RIGHT AXIS DEVIATION QRS(T) CONTOUR ABNORMALITY CONSIDER ANTEROLATERAL MYOCARDIAL DAMAGE CONSIDER INFERIOR MYOCARDIAL DAMAGE ABNORMAL ECG RI6.01 No previous ECG available for comparison
[2018-11-10] MEDS ORDERED: ENOXAPARIN 40 MG/0.4 ML SYRINGE. SQ SCH (09:00)
== END 2018-11-09 14:15 | disposition home or self-care (01) | DRG 313 ==
LOC: ER 23:00 → 1 SOUTH 11-09 00:30
PROVIDERS: ADMIT Internal Medicine; ATTEND Internal Medicine
DX: R07.89 Other chest pain (principal); E03.9 Hypothyroidism, unspecified; F41.1 Generalized anxiety disorder; Z79.890 Hormone replacement therapy; Z79.899 Other long term (current) drug therapy; Z88.8 Allergy status to other drugs, medicaments and biological substances
CPT/HCPCS: 36415; 71046; 71275; 80048; 80061; 80076; 80307; 81001; 82550; 83690; 83735; 83880; 84443; 84484; 85025; 85379; 85610; 85730; 93005; 96361; 96372; 96374; J1650; J2060; J7120; Q9967; 99285-25

== ENCOUNTER 2019-01-21 18:16 | Emergency (ER) | payer OTHER ==
[~2019-01-21] VITALS: Ht 193 cm; Wt 99.4 kg
[~2019-01-21 18:16] MED LIST: ESCITALOPRAM OX20 MG PO; LEVO137T3 PO; LORA0.5T PO
[2019-01-21 18:22] VITALS: BP 150/87
--- NOTE | 2019-01-21 18:49 | PHYS DOC ---
Past History Past Medical History: Anxiety, Other Additional Past Medical Histor: raza's Past Surgical History: Other Additional Past Surgical Histo: wisdom teeth removed Smoking: Non-smoker Alcohol Use: Occasionally Drug Use: None Adult General Chief Complaint Chief Complaint: ANXIETY/PANIC ATTACK HPI HPI 23-year-old male presents with report of increased anxiety and palpitations which is been going on all day. Reports he is having a "bad day ". Reports she took some lorazepam 1 mg tablet at 10:30am with some improvement. 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 Patient reports he decided to present to the emergency department for further evaluation. Denies suicidal or homicidal ideation. Denies fever or chills. Review of Systems Review of Systems Constitutional: Denies fever or chills Eyes: Denies redness or eye pain HENT: Denies nasal congestion or sore throat Respiratory: Denies cough or shortness of breath Cardiovascular: Denies chest pain; reports palpitations GI: Denies abdominal pain, nausea, or vomiting Musculoskeletal: Denies back pain or joint pain Integument: Denies rash or skin lesions Neurologic: Denies headache, focal weakness or sensory changes Psychiatric: Reports anxiety; denies suicidal ideation Complete systems were reviewed and found to be within normal limits, except as documented in this note. Current Medications Current Medications Current Medications Medications (Trade) Dose Ordered Sig/Silvio Start Time Stop Time Status Last Admin Dose Admin Lorazepam (Ativan Inj) 1 mg 1X ONCE 01/21/19 18:45 01/21/19 18:46 01/21/19 18:40 1 MG Allergies Allergies Allergies Coded Allergies Type Severity Reaction Last Updated Verified acetaminophen Allergy Intermediate Hives 01/21/19 Yes Physical Exam Physical Exam Constitutional: Well developed, well nourished, no acute distress, non-toxic appearance HENT: Normocephalic, atraumatic, oropharynx moist Eyes: Conjunctiva normal, no discharge Neck: Normal range of motion, no tenderness, supple Cardiovascular: Heart rate normal, regular rhythm Lungs & Thorax: Bilateral breath sounds clear to auscultation, no wheezing Skin: Warm, dry, no erythema, no rash Extremities: No tenderness, ROM intact, no edema Neurologic: Alert and oriented X 3, normal motor function, normal sensory function, no focal deficits noted Psychologic: Affect anxious, judgement normal Current Patient Data Vital Signs Vital Signs Date Time Temp Pulse Resp B/P (MAP) Pulse Ox O2 Delivery O2 Flow Rate FiO2 01/21/19 18:22 97.9 89 18 94 Room Air EKG EKG @1842 NSR at 62bpm, NO ST elevation, QRS 94ms, QT/QTc 398/406ms Radiology/Procedures Radiology/Procedures [] Course & Med Decision Making Course & Med Decision Making Patient presents with history of present illness and physical exam consistent for panic attack. EKG stable. Symptomatic treatment provided. Patient stable for discharge with outpatient follow-up with PCP. Discussed findings and plan with patient and family, who acknowledge understanding and agreement. Dragon Disclaimer Dragon Disclaimer This electronic medical record was generated, in whole or in part, using a voice recognition dictation system. Departure Departure: Impression: Primary Impression: Anxiety Disposition: 01 HOME, SELF-CARE Condition: STABLE Referrals: ADRIANNA LANZA (PCP) Patient Instructions: Anxiety and Panic Attacks, [id number] PB COPELAND DO Jan 21, 2019 18:49
--- NOTE | 2019-01-22 04:31 | EKG ---
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
== END 2019-01-21 19:04 | disposition home or self-care (01) ==
LOC: ER 18:16
DX: F41.9 Anxiety disorder, unspecified (principal); Z88.6 Allergy status to analgesic agent
CPT/HCPCS: 93005; 96372; 99284; J2060

== ENCOUNTER 2020-03-28 18:28 | Emergency (ER) | payer OTHER ==
[~2020-03-28] VITALS: Ht 193 cm; Wt 105.6 kg
[2020-03-28 18:30] VITALS: BP 125/84
--- NOTE | 2020-03-28 18:57 | PHYS DOC ---
Past History Past Medical History: Anxiety, Hypothyroid, Other Additional Past Medical Histor: hoshimoto's, psoriasis (JOSIAH BAZZI APRN) Past Surgical History: Other Additional Past Surgical Histo: wisdom teeth removed (JOSIAH BAZZI APRN) Smoking: Non-smoker Alcohol Use: Occasionally Drug Use: None (JOSIAH BAZZI APRN) Adult General Chief Complaint Chief Complaint: FOOT INJURY PAIN HPI HPI Patient is a 24-year-old male who presents with burn to top of the right foot. Patient reports that he was at work cleaning off a table with hot water, when it dripped down and went through his boot. Patient reports that when he got off work he took off his sock and noticed that he had a blister on the top of his foot and his great toe. Patient reports that the blisters have already popped when he removed his shoe. Patient denies taking anything for the pain. Patient's tetanus is up-to-date. (JOSIAH BAZZI APRN) Review of Systems Review of Systems Constitutional: Denies fever or chills [] Musculoskeletal: Denies back pain or joint pain [] Integument: Denies rash or skin lesions other than burn to right foot Neurologic: Denies headache, focal weakness or sensory changes [] All other systems were reviewed and found to be within normal limits, except as documented in this note. (JOSIAH BAZZI APRN) Allergies Allergies Allergies Coded Allergies Type Severity Reaction Last Updated Verified acetaminophen Allergy Intermediate Hives 03/28/20 Yes (JOSIAH BAZZI APRN) Physical Exam Physical Exam Constitutional: Well developed, well nourished, no acute distress, non-toxic appearance. [] HENT: Normocephalic, atraumatic, bilateral external ears normal, oropharynx moist, no oral exudates, nose normal. [] Eyes: PERRLA, EOMI, conjunctiva normal, no discharge. [] Neck: Normal range of motion, no tenderness, supple, no stridor. [] Cardiovascular:Heart rate regular rhythm, no murmur [] Lungs & Thorax: Bilateral breath sounds clear to auscultation [] Abdomen: Bowel sounds normal, soft, no tenderness, no masses, no pulsatile masses. [] Skin: Warm, dry, no erythema, no rash. 1x3 blister to top of right foot. Blister is broken with small amount, serous fluid Back: No tenderness, no CVA tenderness. [] Extremities: No tenderness, no cyanosis, no clubbing, ROM intact, no edema. [] Neurologic: Alert and oriented X 3, normal motor function, normal sensory function, no focal deficits noted. [] Psychologic: Affect normal, judgement normal, mood normal. [] (JOSIAH BAZZI APRN) Current Patient Data Vital Signs Vital Signs Date Time Temp Pulse Resp B/P (MAP) Pulse Ox O2 Delivery O2 Flow Rate FiO2 03/28/20 18:30 97.7 90 16 125/84 (98) 98 (JOSIAH BAZZI APRN) EKG EKG [] (JOSIAH BAZZI APRN) Radiology/Procedures Radiology/Procedures [] (JOSIAH BAZZI APRN) Heart Score Risk Factors: Risk Factors: DM, Current or recent (<one month) smoker, HTN, HLP, family history of CAD, obesity. Risk Scores: Risk Factors: DM, Current or recent (<one month) smoker, HTN, HLP, family history of CAD, obesity. (JOSIAH BAZZI APRN) Course & Med Decision Making Course & Med Decision Making Pertinent Labs and Imaging studies reviewed. (See chart for details) [] (JOSIAH BAZZI APRN) Dragon Disclaimer Dragon Disclaimer This electronic medical record was generated, in whole or in part, using a voice recognition dictation system. (JOSIAH BAZZI APRN) Departure Departure: Impression: Primary Impression: Burn Disposition: 01 DC HOME SELF CARE/HOMELESS Condition: STABLE Referrals: ADRIANNA LANZA (PCP) Patient Instructions: Burn Care, [id number] Additional Instructions: Apply burn cream as prescribed. Keep foot clean and dry. Ibuprofen as needed for discomfort. [place]CP [place]. Scripts Silver Sulfadiazine (SILVADENE) 20 Gm Cream..g. 20 GM TP BID for burn, #1 EACH Prov: JOSIAH BAZZI APRN 03/28/20 Attending Signature Attending Signature I have participated in the care of this patient and I have reviewed and agree with all pertinent clinical information above including history, exam, and rec ommendations. (LIBORIO DEL VALLE MD) Dragon Disclaimer This chart was dictated in whole or in part using Voice Recognition software in a busy, high-work load, and often noisy Emergency Department environment. It may contain unintended and wholly unrecognized errors or omissions. (LIBORIO DEL VALLE MD) JOSIAH BAZZI APRN Mar 28, 2020 18:57 LIBORIO DEL VALLE MD Mar 29, 2020 22:40
[2020-03-28] MEDS ORDERED: SILV20CR14 TP (19:01)
[2020-03-28] MEDS ORDERED: NEOMY/BACITR/POLYMYXIN OINT PACKET. TP ONE (19:15)
== END 2020-03-28 19:20 | disposition home or self-care (01) ==
LOC: ER 18:28
DX: T25.221A Burn of second degree of right foot, initial encounter (principal); F41.9 Anxiety disorder, unspecified; E03.9 Hypothyroidism, unspecified; Z88.6 Allergy status to analgesic agent; X11.8XXA Contact with other hot tap-water, initial encounter; Y93.E9 Activity, other interior property and clothing maintenance; Y92.89 Other specified places as the place of occurrence of the external cause; Y99.0 Civilian activity done for income or pay
CPT/HCPCS: 99283

== ENCOUNTER 2020-07-18 07:33 | Emergency (ER) | payer OTHER ==
[~2020-07-18] VITALS: Ht 193 cm; Wt 118.0 kg
[~2020-07-18 07:33] MED LIST changes: +SILV20CR14 TP
[2020-07-18 07:36] VITALS: BP 123/78
--- NOTE | 2020-07-18 08:11 | PHYS DOC ---
Past History Past Medical History: Anxiety Additional Past Medical Histor: hashimotos Past Surgical History: No Surgical History Additional Past Surgical Histo: wisdom teeth removed Smoking: Non-smoker Alcohol Use: Occasionally Drug Use: None Adult General Chief Complaint Chief Complaint: NAUSEA/VOMITING/DIARRHEA HPI HPI Patient is 25-year-old male who presents to the emergency room complaining of diffuse body aches, nausea, vomiting, headache. Patient states he woke up this morning and had a little bit of abdominal discomfort and then had a couple episodes of vomiting. He has not had any further vomiting but does feel nauseated. He does have some lower abdominal pain. He states that his body aches are much worse than his abdominal pain. He states that if he gets up and moves around the pain is not worse but that his body aches do get worse. His headache is minor. He states that he does not have any cough, sore throat, URI symptoms, fever, chills, anorexia. Patient states that he is here because his surgeon told him he needed to ensure that he did not have Covid. He has had both Covid vaccines. His last vaccine was in June. Review of Systems Review of Systems Complete ROS is negative unless otherwise documented in HPI Allergies Allergies Allergies Coded Allergies Type Severity Reaction Last Updated Verified acetaminophen Allergy Intermediate Hives 07/18/20 Yes Physical Exam Physical Exam General: Awake, alert, NAD. Well Nourished, well hydrated. Cooperative HEENT: Atraumatic, EOMI, PERRL, airway patent, moist oral mucosa Neck: Supple, trachea midline Respiratory: CTA bilaterally, normal effort, no wheezing/crackles CV: RRR, no murmur, cap refill <2 GI: Soft, nondistended, no masses, periumbilical tenderness without any rebound or guarding MSK: No obvious deformities Skin: Warm, dry, intact Neuro: A&O x3, speech NL, sensory and motor grossly intact, no focal deficits Psych: Normal affect, normal mood, not suicidal or homicidal Current Patient Data Vital Signs Vital Signs Date Time Temp Pulse Resp B/P (MAP) Pulse Ox O2 Delivery O2 Flow Rate FiO2 07/18/20 07:36 98.3 104 123/78 (93) 93 Room Air EKG EKG [] Radiology/Procedures Radiology/Procedures [] Heart Score C/O Chest Pain: N/A Risk Factors: Risk Factors: DM, Current or recent (<one month) smoker, HTN, HLP, family history of CAD, obesity. Risk Scores: Risk Factors: DM, Current or recent (<one month) smoker, HTN, HLP, family history of CAD, obesity. Course & Med Decision Making Course & Med Decision Making Pertinent Labs and Imaging studies reviewed. (See chart for details) Patient is a 25-year-old male who presents to the emergency room complaining of body aches, vomiting, headache, abdominal pain. Patient did not initially mention abdominal pain and only mentions that when asked about it. He does have some mild abdominal tenderness but does not have any signs of peritonitis. He does not have any rebound or guarding. Patient has several associated symptoms which are more suggestive of viral infection. A Covid and influenza swab will be done. Patient will be given Zofran. I did discuss with him the signs and symptoms of appendicitis. Patient promises to return to the emergency room if his abdominal pain gets worse, he starts having fevers, he has any difficulty with eating, or he has other concerns. Dragon Disclaimer Dragon Disclaimer This electronic medical record was generated, in whole or in part, using a voice recognition dictation system. Departure Departure: Impression: Primary Impression: Viral syndrome Disposition: 01 DC HOME SELF CARE/HOMELESS Condition: STABLE Referrals: ADRIANNA LANZA (PCP) Patient Instructions: Viral Syndrome Scripts Ondansetron (ONDANSETRON ODT) 4 Mg Tab.rapdis 1 TAB PO PRN Q6-8HRS for nausea, #16 TAB Prov: BARRERA CONNORS MD 07/18/20 BARRERA CONNORS MD Jul 18, 2020 08:11
[2020-07-18] MEDS ORDERED: ONDANSETRON ODT 4 MG TAB.RAPDIS PO ONE (08:15)
[2020-07-18] MEDS ORDERED: ONDA4TAB12 PO (09:03)
[2020-07-18 09:08] LABS: INFLUENZA A PATIENT NEGATIVE (NEGATIVE); INFLUENZA B PATIENT NEGATIVE (NEGATIVE)
== END 2020-07-18 10:01 | disposition home or self-care (01) ==
LOC: ER 07:33
DX: B34.9 Viral infection, unspecified (principal); Z20.822 Contact with and (suspected) exposure to COVID-19; Z88.6 Allergy status to analgesic agent
CPT/HCPCS: 87804; 99283; C9803; Q0162; U0003; U0005

== ENCOUNTER 2021-02-12 06:35 | Emergency (ER) | payer OTHER ==
[~2021-02-12] VITALS: Ht 193 cm; Wt 110.9 kg
[~2021-02-12 06:35] MED LIST changes: +ONDA4TAB12 PO
[2021-02-12] MEDS ORDERED: KETOROLAC 30 MG/ML VIAL. IVP ONE (06:45)
[2021-02-12] MEDS ORDERED: IV NORMAL SALINE 1,000ML 1,000 ML IV ONE (06:45)
[2021-02-12 06:47] VITALS: BP 111/72
--- NOTE | 2021-02-12 06:58 | PHYS DOC ---
Past History Past Medical History: Anxiety Additional Past Medical Histor: hashimotos Past Surgical History: No Surgical History Additional Past Surgical Histo: wisdom teeth removed Smoking: Non-smoker Alcohol Use: Occasionally Drug Use: None General Adult EDM: Chief Complaint: GENERALIZED BODY ACHES HPI: HPI: 25-year-old male presents with body aches, fever, mild headache, fatigue. This is day 2 of the symptoms. Patient has not had any nausea, vomiting, or diarrhea. He is vaccinated against COVID-19 but has not had his flu shot yet. He denies falls or trauma. He is unsure of sick contacts. No fever on arrival. Review of Systems: Review of Systems: Constitutional: Fever, body aches Eyes: Denies change in visual acuity HENT: Denies nasal congestion or sore throat Respiratory: Denies cough or shortness of breath Cardiovascular: Denies chest pain or edema GI: Denies abdominal pain, nausea, vomiting, bloody stools or diarrhea : Denies dysuria Musculoskeletal: Denies back pain or joint pain Integument: Denies rash Neurologic: Headache. Denies focal weakness or sensory changes Endocrine: Denies polyuria or polydipsia Lymphatic: Denies swollen glands Psychiatric: Denies depression or anxiety Current Medications: Current Meds: Current Medications Medications (Trade) Dose Ordered Sig/Silvio Start Time Stop Time Status Last Admin Dose Admin Ketorolac Tromethamine (Toradol 30mg Vial) 30 mg 1X ONCE 02/12/21 06:45 02/12/21 06:53 DC Sodium Chloride 1,000 ml @ 1,000 mls/hr 1X ONCE 02/12/21 06:45 02/12/21 07:44 Allergies: Allergies: Allergies Coded Allergies Type Severity Reaction Last Updated Verified acetaminophen Allergy Intermediate Hives 07/18/20 Yes Physical Exam: PE: Constitutional: Well developed, well nourished, no acute distress, non-toxic appearance. [] HENT: Normocephalic, atraumatic, bilateral external ears normal, oropharynx moist, no oral exudates, nose normal. [] Eyes: PERRLA, EOMI, conjunctiva normal, no discharge. [] Neck: Normal range of motion, no tenderness, supple, no stridor. [] Cardiovascular: Heart rate regular rhythm, no murmur [] Lungs & Thorax: Bilateral breath sounds clear to auscultation [] Abdomen: Bowel sounds normal, soft, no tenderness, no masses, no pulsatile masses. [] Skin: Warm, dry, no erythema, no rash. [] Back: No tenderness, no CVA tenderness. [] Extremities: No tenderness, no cyanosis, no clubbing, ROM intact, no edema. [] Neurologic: Alert and oriented X 3, normal motor function, normal sensory function, no focal deficits noted. [] Psychologic: Affect normal, judgement normal, mood normal. [] Current Patient Data: Vital Signs: Vital Signs Date Time Temp Pulse Resp B/P (MAP) Pulse Ox O2 Delivery O2 Flow Rate FiO2 02/12/21 06:47 99.6 101 18 111/72 (85) 96 Room Air EKG: EKG: [] Radiology/Procedures: Radiology/Procedures: [] Heart Score: C/O Chest Pain: N/A Risk Factors: Risk Factors: DM, Current or recent (<one month) smoker, HTN, HLP, family history of CAD, obesity. Risk Scores: Score 0 - 3: 2.5% MACE over next 6 weeks - Discharge Home Score 4 - 6: 20.3% MACE over next 6 weeks - Admit for Clinical Observation Score 7 - 10: 72.7% MACE over next 6 weeks - Early Invasive Strategies Course & Med Decision Making: Course & Med Decision Making Pertinent Labs and Imaging studies reviewed. (See chart for details) The patient's labs are unremarkable. His influenza is negative. This could be COVID-19 or another viral illness. I would advise plenty of fluids and rest at home. He is stable for discharge at this time. [] Nikhil Disclaimer: Nikhil Disclaimer: This electronic medical record was generated, in whole or in part, using a voice recognition dictation system. Departure Departure: Impression: Primary Impression: Viral syndrome Additional Impression: Suspected COVID-19 virus infection Disposition: HOME / SELF CARE / HOMELESS Condition: STABLE Referrals: ALICE CLAROS MD (PCP) Additional Instructions: You have been tested for or diagnosed with COVID-19. It is an infection caused by a new type of coronavirus. COVID-19 will cause cold-like or mild flu symptoms in most. It can cause more severe symptoms like problems breathing in some. There is no treatment for COVID-19. The body will clear the infection over time. Self-care will help to ease discomfort. Steps to Take: Self-Care Rest as needed. Healthy habits may help you feel better. Steps include: Choose healthy foods including fruits and vegetables. Drink water throughout the day. Get plenty of sleep each night. If you smoke, try to quit. It may ease breathing. Avoid alcohol. Keep Others Healthy The virus can spread to others. Droplets are released every time you sneeze or cough. The droplets can get into the mouth, nose, or eyes of people near you and lead to infection. To lower the chances of spreading COVID-19 to others: Stay at home until your doctor has said it is safe to leave. If you tested positive this will mean staying isolated until both of the following are true: At least 7 days have passed since the start of illness. You are free of fever for at least 72 hours without the use of medicine. During this time: - Avoid public areas, events, or transportation. Do not return to work or school until your doctor has said it is safe to do so. - Call ahead if you need to go to a medical center. Let them know you may have COVID-19. It will help them guide you where to go. They may also ask you to wear a facemask when you come to the office. - If you call for emergency medical services, let them know you may have COVID- 19. While at home: - Try to avoid close contact with others. Stay about 6 feet away. - If possible, spend most of your time in a separate room from others. - Use a face mask if you will be in close contact with others such as sharing a room or vehicle. - Have someone wipe down common surfaces in the home. Use household it communications specialist every day on areas like doorknobs, counters, or sinks. - Cough or sneeze into a tissue. Throw the tissue away right after use. If a tissue is not available, cough or sneeze into your elbow. - Wash your hands often. Wash them after sneezing or coughing. Use soap and water and wash for at least 20 seconds. Alcohol based hand die cleaner can be used if soap and water is not available. - Do not prepare food for others. Avoid sharing personal items like forks, spoons, or toothbrushes. - Avoid close contact with pets while you are sick. There is no evidence of the virus passing to pets. This is a safety step until more is known about this virus. Isolation can be frustrating. Social interaction can help. Keep in touch with friends and family through phone and tech options. You can still interact with others in your home, just keep a safe distance of about 6 feet. Follow-up: Your doctors office will check in with you to see if there are any changes in your health. You may be asked to keep track of symptoms to share with them. They will also let you know when you are clear to be in public again. Problems to Look Out For: Contact your doctor if your recovery is not going as you expect. Get emergency c are if you have problems such as: - Trouble breathing - Nonstop chest pain or pressure - Changes in awareness, confusion, or problems waking - Lips or face have bluish color - Worsening of symptoms If you think you have an emergency, call for emergency medical services right away. As taken from [facility] BOB SINGH DO Feb 12, 2021 06:58
[2021-02-12 07:32] LABS: BASO % 1 % (0-3); EOS % 0 % (0-3); HEMATOCRIT 43.2 % (39.0-53.0); HEMOGLOBIN 14.9 g/dL (13.0-17.5); LYMPH # 0.5 x10^3/uL (1.0-4.8); LYMPH % 11 % (24-48); MEAN CORPUSCULAR HEMOGLOBIN 32 pg (25-35); MEAN CORPUSCULAR HGB CONC 35 g/dL (31-37); MEAN CORPUSCULAR VOLUME 93 fL (79-100); MONO # 0.5 x10^3/uL (0.0-1.1); MONO % 12 % (0-9); NEUT # 3.2 x10^3uL (1.8-7.7); NEUT % 77 % (31-73); PLATELET COUNT 156 x10^3/uL (140-400); RED BLOOD COUNT 4.64 x10^6/uL (4.30-5.70); RED CELL DISTRIBUTION WIDTH 12.5 % (11.5-14.5); WHITE BLOOD COUNT 4.2 x10^3/uL (4.0-11.0)
[2021-02-12 07:34] LABS: CALCIUM 8.8 mg/dL (8.5-10.1); CREATININE 1.1 mg/dL (0.7-1.3); POTASSIUM 3.9 mmol/L (3.5-5.1)
[2021-02-12 07:40] LABS: ALBUMIN/GLOBULIN RATIO 1.3 (1.0-1.7); TOTAL BILIRUBIN 0.8 mg/dL (0.2-1.0); TOTAL PROTEIN 7.2 g/dL (6.4-8.2)
[2021-02-12 07:56] LABS: INFLUENZA A PATIENT NEGATIVE (NEGATIVE); INFLUENZA B PATIENT NEGATIVE (NEGATIVE)
== END 2021-02-12 08:30 | disposition home or self-care (01) ==
LOC: ER 06:35
DX: B34.9 Viral infection, unspecified (principal); F41.9 Anxiety disorder, unspecified; Z20.822 Contact with and (suspected) exposure to COVID-19; Z88.8 Allergy status to other drugs, medicaments and biological substances
CPT/HCPCS: 80053; 85025; 87804; 96361; 96374; 99283; C9803; J1885; J7030; U0003

== ENCOUNTER 2021-07-21 22:05 | Emergency (ER) | payer OTHER ==
[~2021-07-21] VITALS: Ht 193 cm; Wt 105.5 kg
[2021-07-21 22:15] VITALS: BP 115/73
[2021-07-21] MEDS ORDERED: CYCLOBENZAPRINE 10 MG TABLET. PO ONE (22:30)
[2021-07-21] MEDS ORDERED: IBUPROFEN 600 MG TABLET. PO ONE (22:30)
--- NOTE | 2021-07-21 22:33 | RAD ---
Study: XR CHEST 1V Indication: Chest pain. Comparison: 11/08/2018 Findings: The cardiomediastinal silhouette and cain are within normal limits. No localized airspace opacity, pl eural effusion or pneumothorax. Impression: No acute radiographic abnormality of the chest. No relevant change from the 11/08/2018 comparison. Electronically signed by: VICKI PARKER MD (07/21/2021 10:30 PM) [facility]
--- NOTE | 2021-07-21 22:37 | PHYS DOC ---
Past History Past Medical History: Anxiety Additional Past Medical Histor: Hashimotos Past Surgical History: No Surgical History Additional Past Surgical Histo: wisdom teeth removed Smoking: Non-smoker Alcohol Use: Occasionally Drug Use: None General Adult EDM: Chief Complaint: BACK PAIN OR INJURY HPI: HPI: Patient is a 26-year-old male presents with right-sided back pain. Patient was lifting pallets earlier today at work, he did feel a twinge just beneath the scapula at that time and it has been hurting him since. He does not have any shortness of breath or increased pain with inspiration. No fever or cough. No anterior chest pain or other complaints. Review of Systems: Review of Systems: Constitutional: Denies fever Eyes: Denies change in visual acuity or eye pain HENT: Denies sore throat Respiratory: Denies shortness of breath Cardiovascular: Denies chest pain GI: Denies abd pain : Denies dysuria Musculoskeletal: Denies extremity injury Integument: Denies rash or skin lesions Neurologic: Denies headache, focal weakness or sensory changes All other systems were reviewed and found to be within normal limits, except as documented in this note. Current Medications: Current Meds: Current Medications Medications (Trade) Dose Ordered Sig/Silvio Start Time Stop Time Status Last Admin Dose Admin Cyclobenzaprine HCl (Flexeril) 10 mg 1X ONCE 07/21/21 22:30 07/21/21 22:31 UNV Ibuprofen (Motrin) 600 mg 1X ONCE 07/21/21 22:30 07/21/21 22:31 UNV Allergies: Allergies: Allergies Coded Allergies Type Severity Reaction Last Updated Verified No Known Drug Allergies 07/21/21 No Physical Exam: PE: Constitutional: Well developed, well nourished, no acute distress, non-toxic appearance. HENT: Normocephalic, atraumatic, bilateral external ears normal, mucosa moist, nose normal. Eyes: EOMI, conjunctiva normal, no discharge. Neck: Normal range of motion, supple, no stridor, no meningeal signs. Cardiovascular: Regular rate and rhythm Lungs & Thorax: Bilateral breath sounds clear to auscultation, he does have some discomfort on palpation underneath the tip of the right scapula Abdomen: Soft, no tenderness or obvious masses Skin: Warm, dry, no erythema, no rash. Extremities: No tenderness, no cyanosis, no clubbing, ROM intact, no edema. Neurologic: Alert and oriented, normal motor function, normal sensory function, no focal deficits noted. Psychologic: Affect normal, judgement normal, mood normal. EKG: EKG: [] Radiology/Procedures: Radiology/Procedures: []PATIENT: MARIANNE MARTINEZ AACCOUNT: [id number]#: [id number] : 1995 LOCATION: ER AGE: 26 SEX: M EXAM STATUS: PRE ER ORD. PHYSICIAN: LUPILLO HADLEY MD REASON: pain PROCEDURE: CHEST AP ONLY Study: XR CHEST 1V Indication: Chest pain. Comparison: 11/08/2018 Findings: The cardiomediastinal silhouette and cain are within normal limits. No localized airspace opacity, pleural effusion or pneumothorax. Impression: No acute radiographic abnormality of the chest. No relevant change from the 11/08/2018 comparison. Electronically signed by: VICKI PARKER MD (07/21/2021 10:30 PM) [facility] DICTATED AND SIGNED BY: VICKI PARKER MD DATE: 07/21/212229 CC: PCP,UNKNOWN; LUPILLO HADLEY MD ~ Heart Score: C/O Chest Pain: No Risk Factors: Risk Factors: DM, Current or recent (<one month) smoker, HTN, HLP, family history of CAD, obesity. Risk Scores: Score 0 - 3: 2.5% MACE over next 6 weeks - Discharge Home Score 4 - 6: 20.3% MACE over next 6 weeks - Admit for Clinical Observation Score 7 - 10: 72.7% MACE over next 6 weeks - Early Invasive Strategies Course & Med Decision Making: Course & Med Decision Making Pertinent Labs and Imaging studies reviewed. (See chart for details) [] This is a 26-year-old male with right-sided back pain after lifting at work. Chest x-ray is negative for evidence of pneumothorax or rib fracture. He does have some pain over the posterior ribs though. We will start him on Motrin and Flexeril, have him follow-up with his primary care physician, he is stable for discharge at this time. Dragon Disclaimer: Nikhil Disclaimer: This electronic medical record was generated, in whole or in part, using a voice recognition dictation system. Departure Departure: Impression: Primary Impression: Back pain Disposition: HOME / SELF CARE / HOMELESS Condition: STABLE Referrals: PCP,UNKNOWN (PCP) Patient Instructions: Back Pain, Adult Scripts Cyclobenzaprine Hcl (CYCLOBENZAPRINE HCL) 10 Mg Tablet 1 TAB PO TID PRN for PAIN, #30 TAB Prov: LUPILLO HADLEY MD 07/21/21 Ibuprofen (IBUPROFEN) 800 Mg Tablet 1 TAB PO TID PRN for PAIN, #30 TAB Prov: LUPILLO HADLEY MD 07/21/21 LUPILLO HADLEY MD Jul 21, 2021 22:36
[2021-07-21] MEDS ORDERED: IBUP800T19 PO (22:42)
[2021-07-21] MEDS ORDERED: CYCL10TA19 PO (22:42)
== END 2021-07-21 22:51 | disposition home or self-care (01) ==
LOC: ER 22:05
DX: M54.89 Other dorsalgia (principal); F41.9 Anxiety disorder, unspecified
CPT/HCPCS: 71045; 99283

== ENCOUNTER 2021-08-02 09:31 | Emergency (ER) | payer OTHER ==
[~2021-08-02] VITALS: Ht 193 cm; Wt 105.5 kg
[~2021-08-02 09:31] MED LIST changes: +CYCL10TA19 PO; +IBUP800T19 PO
[2021-08-02 09:43] VITALS: BP 146/74
[2021-08-02] MEDS: IBUPROFEN 600 MG TABLET. PO ONE (10:11)
--- NOTE | 2021-08-02 10:12 | RAD ---
PA and lateral views of the chest. Comparison: 07/21/2021. Indication: Chest pain Findings: The heart size is normal. No pneumothorax or effusion. No air space or interstitial disease. The bon y structures are intact. Impression: 1. No acute cardiopulmonary process. Electronically signed by: Rufino Hughes MD (08/02/2021 10:09 AM) [id number]
[2021-08-02] MEDS ORDERED: IBUP800T19 PO (10:26)
--- NOTE | 2021-08-02 10:26 | PHYS DOC ---
Past History Past Medical History: Anxiety Additional Past Medical Histor: Hashimotos Past Surgical History: No Surgical History Additional Past Surgical Histo: wisdom teeth removed Smoking: Non-smoker Alcohol Use: Occasionally Drug Use: None General Adult EDM: Chief Complaint: CHEST PAIN HPI: HPI: Patient is a 26-year-old male with chest pain. Patient has pain underneath the rib cage on both sides anteriorly. His significant other was diagnosed with pneumonia recently and he is worried about this. He denies have any fever, cough or shortness of breath. He does not have any substernal pain or pressure. Pain does not radiate and does seem to be a little worse when taking a deep breath. No recent trauma. Review of Systems: Review of Systems: Constitutional: Denies fever Eyes: Denies change in visual acuity or eye pain HENT: Denies sore throat Respiratory: Denies shortness of breath Cardiovascular: Reports chest pain GI: Denies abd pain : Denies dysuria Musculoskeletal: Denies back or extremity injury Integument: Denies rash or skin lesions Neurologic: Denies headache, focal weakness or sensory changes All other systems were reviewed and found to be within normal limits, except as documented in this note. Current Medications: Current Meds: Current Medications Medications (Trade) Dose Ordered Sig/Silvio Start Time Stop Time Status Last Admin Dose Admin Ibuprofen (Motrin) 600 mg 1X ONCE 08/02/21 10:00 08/02/21 10:07 DC 08/02/21 10:11 600 MG Allergies: Allergies: Allergies Coded Allergies Type Severity Reaction Last Updated Verified No Known Drug Allergies 07/21/21 No Physical Exam: PE: Constitutional: Well developed, well nourished, no acute distress, non-toxic appearance. HENT: Normocephalic, atraumatic, bilateral external ears normal, mucosa moist, nose normal. Eyes: EOMI, conjunctiva normal, no discharge. Neck: Normal range of motion, supple, no stridor, no meningeal signs. Cardiovascular: Regular rate and rhythm Lungs & Thorax: Bilateral breath sounds clear to auscultation Abdomen: Soft, no tenderness or obvious masses Skin: Warm, dry, no erythema, no rash. Extremities: No tenderness, no cyanosis, no clubbing, ROM intact, no edema. Neurologic: Alert and oriented, normal motor function, normal sensory function, no focal deficits noted. Psychologic: Affect normal, judgement normal, mood normal. Current Patient Data: Vital Signs: Vital Signs Date Time Temp Pulse Resp B/P (MAP) Pulse Ox O2 Delivery O2 Flow Rate FiO2 08/02/21 09:43 97.8 59 16 146/74 (98) 99 Room Air EKG: EKG: [] Radiology/Procedures: Radiology/Procedures: [] Impressions: PATIENT: MARIANNE MARTINEZ AACCOUNT: [id number] : 1995 LOCATION: ER AGE: 26 SEX: M EXAM STATUS: REG ER ORD. PHYSICIAN: LUPILLO HADLEY MD REASON: CHEST PAIN PROCEDURE: CHEST PA & LATERAL PA and lateral views of the chest. Comparison: 07/21/2021. Indication: Chest pain Findings: The heart size is normal. No pneumothorax or effusion. No air space or interstitial disease. The bony structures are intact. Impression: 1. No acute cardiopulmonary process. Electronically signed by: Rufino Hughes MD (08/02/2021 10:09 AM) [id number] DICTATED AND SIGNED BY: RUFINO HUGHES MD DATE: 08/02/21 1009 CC: [facility]-; LUPILLO HADLEY MD ~ Heart Score: C/O Chest Pain: N/A Risk Factors: Risk Factors: DM, Current or recent (<one month) smoker, HTN, HLP, family history of CAD, obesity. Risk Scores: Score 0 - 3: 2.5% MACE over next 6 weeks - Discharge Home Score 4 - 6: 20.3% MACE over next 6 weeks - Admit for Clinical Observation Score 7 - 10: 72.7% MACE over next 6 weeks - Early Invasive Strategies Course & Med Decision Making: Course & Med Decision Making Pertinent Labs and Imaging studies reviewed. (See chart for details) [] 26-year-old male with anterior chest pain at the costal margin. Chest x-ray is negative for any acute process. Patient was given 60 mg of Motrin. We will give him a prescription for the Motrin and have him follow-up with his primary care physician. Should symptoms become worse or other concerns arise he should return to the emergency department, he is stable for discharge at this time. Dragon Disclaimer: Dragon Disclaimer: This electronic medical record was generated, in whole or in part, using a voice recognition dictation system. Departure Departure: Impression: Primary Impression: Atypical chest pain Disposition: HOME / SELF CARE / HOMELESS Condition: STABLE Referrals: RAQUEL PHELPSP-[facility] (PCP) Patient Instructions: Chest Pain (Nonspecific) Scripts Ibuprofen (IBUPROFEN) 800 Mg Tablet 1 TAB PO TID for pain, #30 TAB Prov: LUPILLO HADLEY MD 08/02/21 LUPILLO HADLEY MD Aug 02, 2021 10:26
== END 2021-08-02 10:44 | disposition home or self-care (01) ==
LOC: ER 09:31
DX: R07.89 Other chest pain (principal); F41.9 Anxiety disorder, unspecified
CPT/HCPCS: 71046; 99283